=== PATIENT | male | born 1940 | race Caucasian/White ===

== ENCOUNTER 2016-11-10 06:53 | Day surgery (SDC) | payer MEDICARE, BC ==
[~2016-11-10 06:53] MED LIST: Midazolam 1 MG/ML 2 ML SDV ONE; fentaNYL 100 MCG/2 ML SDV ONE
[2016-11-10] MEDS ORDERED: fentaNYL 100 MCG/2 ML SDV IV ONE ×3 (07:33→10:13)
[2016-11-10] MEDS ORDERED: Midazolam 1 MG/ML 2 ML SDV IV ONE ×3 (07:35→10:13)
[2016-11-10] MEDS ORDERED: Sodium Chloride 0.9% 10 ML Syringe FLUSH PRN (08:00)
[2016-11-10] MEDS ORDERED: Dextrose 5%-0.45% NaCl 1,000 ML IV SCH (08:00)
--- NOTE | 2016-11-10 09:00 | OR ---
DATE: 11/10/2016 PROCEDURE: Total colonoscopy. INSTRUMENT USED: CF-H180AL Olympus video colonoscope. PREMEDICATIONS: Fentanyl 100 mcg intravenous, Versed 2 mg intravenous. Nasal O2 cannula. The procedure was done under pulse oximetry, BP recording, and manganese heater. INDICATION: The patient with rectal bleeding and recent CT study suggestive of colonic lesion. Colonoscopic examination is done for detection of any polypoid lesions and removal, endoscopic hemostasis therapy if needed. DESCRIPTION OF PROCEDURE: Initial rectal exam was unremarkable. Rigid anoscopy showed small internal hemorrhoids without bleeding from them. The colonoscope was passed with ease. Numerous scattered diverticula were noted more so in the distal left colon. The visualized colon was found to be tortuous and redundant, the patient having large abdominal hernia. The scope was passed with relative ease up to the ileocecal area, photographs were taken of the normal-appearing cecum, identified by double-bulged ileocecal folds. No bleeding was noted from any of the visualized areas at the commencement of the examination. No stricture. No vascular ectasia. No large isolated ulcerations seen. No evidence of diffuse inflammatory bowel disease in the form of friability, contact bleeding, or ulcerations. Few diminutive benign-appearing polyps were noted in the ascending and transverse colon. Probing the proximal sides of folds and flexures, using adequate distention and clearing up the stool material, withdrawal of the scope was made. Cecum to rectum time over 6 minutes. There was some amount of scattered fecal material noted at the completion of the examination. No bleeding was noted from any of the visualized areas at the completion of examination. IMPRESSION: 1. Internal hemorrhoids. 2. Diverticulosis. 3. Diminutive colonic polyp. The patient tolerated the procedure well. [facility] /[id number]
[2016-11-10 09:46] VITALS: BP 120/56
== END 2016-11-10 10:15 | disposition home or self-care (01) ==
LOC: DL.ENDO 06:53
PROVIDERS: ATTEND Internal Medicine Gastroenterology
PROC: 0DJD8ZZ Inspection of Lower Intestinal Tract, Via Natural or Artificial Opening Endoscopic (ICD-10-PCS; principal; 2016-11-10)
DX: K62.5 Hemorrhage of anus and rectum (principal); K64.8 Other hemorrhoids; K46.9 Unspecified abdominal hernia without obstruction or gangrene
CPT/HCPCS: 45378; J2250; J3010; J7042

== ENCOUNTER 2017-10-25 10:50 | Emergency (ER) | payer MEDICARE, BC ==
--- NOTE | 2017-10-25 11:43 | EDM.PDOC ---
ED HPI GENERAL MEDICAL PROBLEM - General Stated Complaint: ANALISA ABOVE HIS PACEMAKER, ARM SWELLING. Time Seen by Provider: 10/25/17 11:15 Source of Information: Reports: Patient History Limitations: Reports: No Limitations - History of Present Illness INITIAL COMMENTS - FREE TEXT/NARRATIVE: This 77 yo male patient reports to the ED with a 1-2 week history of increased swelling in his left arm. The patient reports he has not been to his primary care provider, but has noticed increased swelling over that time period. The patient reports a past history of chronic kidney disease (stage 4), CAD with pacemaker, history of blood clots (lower extremities), and long-term anticoagulation therapy. Duration: Week(s):, Constant, Getting Worse Location: Reports: Upper Extremity, Left Quality: Reports: Ache, Dull Severity: Moderate Improves with: Reports: None Worsens with: Reports: None Associated Symptoms: Reports: No Other Symptoms - Related Data Allergies Allergy/AdvReac Type Severity Reaction Status Date / Time amoxicillin Allergy Cannot Verified 11/10/16 07:06 Remember Home Meds: Home Meds Acetaminophen [Tylenol] 650 mg PO DAILY 09/13/14 [History] Allopurinol [Allopurinol] 100 mg PO DAILY 09/13/14 [History] Bumetanide [Bumex] 4 mg PO ASDIRECTED 09/13/14 [History] Calcitriol [Calcitriol] 0.25 mg PO DAILY 09/13/14 [History] Carvedilol 50 mg PO BID 09/13/14 [History] Ferrous Sulfate [Iron] 325 mg PO DAILY 09/13/14 [History] Isosorbide Mononitrate 20 mg PO TID 09/13/14 [History] LORazepam [Ativan] 2 mg PO BEDTIME 09/13/14 [History] Multivitamin [Multi Vitamin Daily] 1 tab PO DAILY 09/13/14 [History] Pantoprazole [Protonix] 40 mg PO BEDTIME 09/13/14 [History] Simvastatin [Simvastatin] 10 mg PO BEDTIME 09/13/14 [History] Warfarin [Coumadin] 0.5 tab PO ASDIRECTED 09/13/14 [History] amLODIPine Besylate [Amlodipine Besylate] 2.5 mg PO DAILY 09/13/14 [History] hydrALAZINE [Apresoline] 50 mg PO BID 09/13/14 [History] Acetaminophen/Diphenhydramine [Tylenol Pm Ex-Strength Caplet] 1 tab PO BEDTIME PRN 11/08/16 [History] Ipratropium/Albuterol Sulfate [Iprat-Albut 0.5-3(2.5) MG/3 ML] 1 vial INH Q4H PRN 11/08/16 [History] Acetaminophen [Tylenol Extra Strength] 2 tab PO DAILY 10/25/17 [History] Isosorbide Dinitrate 1 tab PO BID 10/25/17 [History] Past Medical History HEENT History: Reports: None Cardiovascular History: Reports: Blood Clots/VTE/DVT, Heart Failure, High Cholesterol, Hypertension, Other (See Below) Other Cardiovascular History: cardiomyopathy Respiratory History: Reports: PE Gastrointestinal History: Reports: GERD Genitourinary History: Reports: Chronic Renal Insuffiency Musculoskeletal History: Reports: Arthritis, Gout Neurological History: Reports: CVA Psychiatric History: Reports: None Endocrine/Metabolic History: Reports: None Hematologic History: Reports: None Immunologic History: Reports: None Oncologic (Cancer) History: Reports: None Dermatologic History: Reports: None - Infectious Disease History Infectious Disease History: Reports: Chicken Pox, Measles, Mumps - Past Surgical History HEENT Surgical History: Reports: None Cardiovascular Surgical History: Reports: Pacer GI Surgical History: Reports: Appendectomy, Cholecystectomy, EGD Social & Family History - Family History HEENT: Reports: Cataract Cardiac: Reports: Hypertension Respiratory: Reports: None GI: Reports: None : Reports: None OBGYN: Reports: None Musculoskeletal: Reports: Arthritis Neurological: Reports: None Psychiatric: Reports: Mood Swings Endocrine/Metabolic: Reports: None Hematologic: Reports: B12 Deficiency Immunologic: Reports: None Dermatologic: Reports: None Oncologic: Reports: None - Tobacco Use Smoking Status *Q: Never Smoker - Caffeine Use Caffeine Use: Reports: Coffee, Soda Other Caffeine Use: rare - Alcohol Use Days Per Week of Alcohol Use: 0 - Recreational Drug Use Recreational Drug Use: No - Living Situation & Occupation Living situation: Reports: , with Spouse Occupation: Retired ED ROS GENERAL - Review of Systems Review Of Systems: ROS reveals no pertinent complaints other than HPI. ED EXAM, SKIN/RASH Exam: See Below Exam Limited By: No Limitations General Appearance: Alert, WD/WN, Moderate Distress Eye Exam: Bilateral Eye: EOMI, Normal Inspection, PERRL Ears: Normal External Exam, Normal Canal, Hearing Grossly Normal, Normal TMs Nose: Normal Inspection, Normal Mucosa, No Blood Throat/Mouth: Normal Inspection, Normal Lips, Normal Teeth, Normal Gums, Normal Oropharynx, Normal Voice, No Airway Compromise Head: Atraumatic, Normocephalic Neck: Normal Inspection, Supple, Non-Tender, Full Range of Motion Respiratory/Chest: No Respiratory Distress, Lungs Clear, Normal Breath Sounds, No Accessory Muscle Use, Chest Non-Tender Cardiovascular: Normal Peripheral Pulses, Regular Rate, Rhythm, No Edema, No Gallop, No JVD, No Murmur, No Rub GI/Abdominal: Normal Bowel Sounds, Soft, Non-Tender, No Organomegaly, No Distention, No Abnormal Bruit, No Mass (Male) Exam: Deferred Rectal (Males) Exam: Deferred Back Exam: Normal Inspection, Full Range of Motion, NT Extremities: Redness (redness and swelling of the left elbow.) Neurological: Alert, Oriented, CN II-XII Intact, Normal Cognition, Normal Gait, Normal Reflexes, No Motor/Sensory Deficits Psychiatric: Normal Affect, Normal Mood Skin: Erythema Location, Skin: Upper Extremity, Left Characteristics: Erythematous Associated features: Warmth, Swelling. No: Tenderness Lymphatic: No Adenopathy Course - Orders/Labs/Meds Orders: Active Orders 24 hr Category Date Time Status CULTURE BLOOD [BC] Stat Lab 10/25/17 11:47 Received CULTURE BLOOD [BC] Stat Lab 10/25/17 11:50 Received Blood Culture x2 Reflex Set [OM.PC] Stat Oth 10/25/17 11:36 Ordered Labs: Laboratory Tests 10/25/17 10/25/17 10/25/17 Range/Units 11:47 11:47 11:47 WBC 7.7 (5.0-10.0) 10^3/uL RBC 3.24 L (4.6-6.2) 10^6/uL Hgb 9.9 L D (14.0-18.0) g/dL Hct 33.2 L (40.0-54.0) % MCV 102.5 H D (80-100) fL MCH 30.6 (27.0-34.0) pg MCHC 29.8 L (33.0-35.0) g/dL Plt Count 186 (150-450) 10^3/uL Neut % (Auto) 51.3 (42.2-75.2) % Lymph % (Auto) 31.0 (20.5-50.1) % [place] % (Auto) 13.6 H (2-8) % Eos % (Auto) 3.3 H (1.0-3.0) % Baso % (Auto) 0.8 (0.0-1.0) % PT 23.0 H D (9.0-12.0) SEC INR 2.3 H (0.9-1.2) Sodium 139 (135-145) mmol/L Potassium 4.2 (3.6-5.0) mmol/L Chloride 106 (101-111) mmol/L Carbon Dioxide 26.0 (21.0-31.0) mmol/L Anion Gap 11.2 BUN 65 H (7-18) mg/dL Creatinine 3.6 H D (0.6-1.3) mg/dL Est Cr Clr Drug Dosing TNP Estimated GFR (MDRD) 16 BUN/Creatinine Ratio 18.05 Glucose 101 (74-105) mg/dL Lactic Acid (0.5-2.2) mmol/L Calcium 9.2 (8.4-10.2) mg/dl Total Bilirubin 0.8 (0.2-1.0) mg/dL AST 12 (10-42) IU/L ALT 7 L (10-60) IU/L Alkaline Phosphatase 38 L (42-121) IU/L Total Protein 5.6 L (6.7-8.2) g/dl Albumin 3.0 L (3.2-5.5) g/dl Globulin 2.6 Albumin/Globulin Ratio 1.15 /18 Range/Units 11:47 WBC (5.0-10.0) 10^3/uL RBC (4.6-6.2) 10^6/uL Hgb (14.0-18.0) g/dL Hct (40.0-54.0) % MCV (80-100) fL MCH (27.0-34.0) pg MCHC (33.0-35.0) g/dL Plt Count (150-450) 10^3/uL Neut % (Auto) (42.2-75.2) % Lymph % (Auto) (20.5-50.1) % [place] % (Auto) (2-8) % Eos % (Auto) (1.0-3.0) % Baso % (Auto) (0.0-1.0) % PT (9.0-12.0) SEC INR (0.9-1.2) Sodium (135-145) mmol/L Potassium (3.6-5.0) mmol/L Chloride (101-111) mmol/L Carbon Dioxide (21.0-31.0) mmol/L Anion Gap BUN (7-18) mg/dL Creatinine (0.6-1.3) mg/dL Est Cr Clr Drug Dosing Estimated GFR (MDRD) BUN/Creatinine Ratio Glucose (74-105) mg/dL Lactic Acid 0.9 (0.5-2.2) mmol/L Calcium (8.4-10.2) mg/dl Total Bilirubin (0.2-1.0) mg/dL AST (10-42) IU/L ALT (10-60) IU/L Alkaline Phosphatase (42-121) IU/L Total Protein (6.7-8.2) g/dl Albumin (3.2-5.5) g/dl Globulin Albumin/Globulin Ratio Departure - Departure Time of Disposition: 12:43 Disposition: Home, Self-Care 01 Condition: Fair Clinical Impression: Cellulitis of left arm CKD (chronic kidney disease) Qualifiers: Chronic kidney disease stage: stage 4 (severe) Qualified Code(s): N18.4 - Chronic kidney disease, stage 4 (severe) - Discharge Information Instructions: Cellulitis, Adult, [id number] Care Plan Goals: The patient and his were advised of the examination and lab results during the visit. The patient was given a script for Keflex (500 mg) to take 1 by mouth 3 times per day for 10 days. The patient was encouraged to follow-up with his primary care facility by the end of the week for continued evaluation and further management. If the patient has any additional symptoms or concerns, the patient should visit his primary care facility or return to the emergency department. - My Orders Last 24 Hours: My Active Orders 10/25/17 11:36 Blood Culture x2 Reflex Set [OM.PC] Stat 10/25/17 11:47 CULTURE BLOOD [BC] Stat 10/25/17 11:50 CULTURE BLOOD [BC] Stat - Assessment/Plan Last 24 Hours: My Active Orders 10/25/17 11:36 Blood Culture x2 Reflex Set [OM.PC] Stat 10/25/17 11:47 CULTURE BLOOD [BC] Stat 10/25/17 11:50 CULTURE BLOOD [BC] Stat
[2017-10-25 12:16] LABS: CHLORIDE,CL 106 mmol/L (101-111); SODIUM,NA 139 mmol/L (135-145)
== END 2017-10-25 12:57 | disposition home or self-care (01) ==
LOC: DL.ED 10:50
DX: L03.114 Cellulitis of left upper limb (principal); I13.0 Hypertensive heart and chronic kidney disease with heart failure and stage 1 through stage 4 chronic kidney disease, or unspecified chronic kidney disease; I50.9 Heart failure, unspecified; N18.4 Chronic kidney disease, stage 4 (severe); E78.00 Pure hypercholesterolemia, unspecified; Z88.1 Allergy status to other antibiotic agents; Z79.01 Long term (current) use of anticoagulants; Z79.899 Other long term (current) drug therapy; Z86.718 Personal history of other venous thrombosis and embolism
CPT/HCPCS: 36415; 80053; 83605; 85025; 85610; 87040; 99283

== ENCOUNTER 2017-10-28 11:48 | Inpatient (IN) | payer MEDICARE, BC ==
[2017-10-28] MEDS ORDERED: Acetaminophen 325 MG Tab PO PRN (13:00)
[2017-10-28] MEDS ORDERED: Heparin Sodium 5,000 Units/ML Vial IVPUSH SCH (13:00)
[2017-10-28] MEDS ORDERED: traMADol 50 MG Tab PO PRN (13:06)
[2017-10-28] MEDS ORDERED: Sodium Chloride 0.9% 10 ML Syringe FLUSH PRN (13:09)
[2017-10-28] MEDS ORDERED: Zolpidem 5 MG Tab PO PRN (13:09)
[2017-10-28] MEDS ORDERED: Bumetanide 1 MG Tab PO SCH (14:00)
[2017-10-28] MEDS: Heparin Sodium/D5W 25,000 UNITS/500 ML BAG IV SCH (14:17)
[2017-10-28] MEDS ORDERED: Non-Formulary Medication 1 Each (Bumetanide [Bumex] 2 MG) PO SCH (14:45)
[2017-10-28] MEDS ORDERED: Warfarin 2.5 MG Tab PO ONE (15:00)
--- NOTE | 2017-10-28 15:14 | PCM.HP ---
H&P History of Present Illness - General Date of Service: 10/28/17 Admit Problem/Dx: Admission Diagnosis/Problem Admission Diagnosis/Problem DVT of right axillary vein, acute Source of Information: Patient, Family - History of Present Illness Initial Comments - Free Text/Narative: The patient is a 77-year-old gentleman with a history of chronic kidney disease stage V, history of pulmonary embolism and DVT, dyslipidemia and hypertension. The patient presented with left arm swelling and redness. It appears it started around 22 October. Later had a clinic visit and was started on Keflex for a presumed cellulitis. The swelling and redness did not improve and was seen in the clinic on 28 October. The patient had no associated fever nor chills. He has been on Coumadin but lately the INR was subtherapeutic. He denies any new shortness of breath. - Related Data Allergies/Adverse Reactions: Allergies Allergy/AdvReac Type Severity Reaction Status Date / Time amoxicillin Allergy Cannot Verified 11/10/16 07:06 Remember Home Medications: Home Meds Acetaminophen [Tylenol] 650 mg PO DAILY 09/13/14 [History] Allopurinol [Allopurinol] 100 mg PO DAILY 09/13/14 [History] Bumetanide [Bumex] 1 mg PO .NOON 09/13/14 [History] Calcitriol [Calcitriol] 2 tab PO DAILY 09/13/14 [History] Carvedilol 50 mg PO BID 09/13/14 [History] Ferrous Sulfate [Iron] 325 mg PO DAILY 09/13/14 [History] Isosorbide Mononitrate 20 mg PO TID 09/13/14 [History] LORazepam [Ativan] 2 mg PO BEDTIME 09/13/14 [History] Multivitamin [Multi Vitamin Daily] 1 tab PO DAILY 09/13/14 [History] Pantoprazole [Protonix] 40 mg PO BEDTIME 09/13/14 [History] Simvastatin [Simvastatin] 10 mg PO BEDTIME 09/13/14 [History] Warfarin [Coumadin] 1.25 tab PO ASDIRECTED 09/13/14 [History] amLODIPine Besylate [Amlodipine Besylate] 2.5 mg PO DAILY 09/13/14 [History] hydrALAZINE [Apresoline] 50 mg PO BID 09/13/14 [History] Acetaminophen/Diphenhydramine [Tylenol Pm Ex-Strength Caplet] 1 tab PO BEDTIME PRN 11/08/16 [History] Acetaminophen [Tylenol Extra Strength] 2 tab PO DAILY 10/25/17 [History] Bumetanide [Bumex] 2 mg PO .0800 10/28/17 [History] Cephalexin 500 mg PO TID 10/28/17 [History] Past Medical History HEENT History: Reports: None Cardiovascular History: Reports: Blood Clots/VTE/DVT, Heart Failure, High Cholesterol, Hypertension, Other (See Below) Other Cardiovascular History: cardiomyopathy Respiratory History: Reports: PE, Pneumonia, Recurrent Gastrointestinal History: Reports: GERD Genitourinary History: Reports: Chronic Renal Insuffiency Other Genitourinary History: CKD stage 5 with GFR less than 15 ml/min, ARF, Musculoskeletal History: Reports: Arthritis, Gout Neurological History: Reports: CVA Other Neuro History: cerebrovascular disease with pontine stroke in 1998 Psychiatric History: Reports: None Endocrine/Metabolic History: Reports: None Hematologic History: Reports: None, Anticoagulation Therapy Other Hematologic History: recurrent DVT and remote history or PE Immunologic History: Reports: None Oncologic (Cancer) History: Reports: None Dermatologic History: Reports: None - Infectious Disease History Infectious Disease History: Reports: MRSA - Past Surgical History HEENT Surgical History: Reports: None Cardiovascular Surgical History: Reports: Pacer GI Surgical History: Reports: Appendectomy, Cholecystectomy, EGD Other GI Surgeries/Procedures: 11/30/[address] Art, esophageal stricture benign Social & Family History - Family History Family Medical History: Noncontributory HEENT: Reports: Cataract Cardiac: Reports: Hypertension Respiratory: Reports: None GI: Reports: None : Reports: None OBGYN: Reports: None Musculoskeletal: Reports: Arthritis Neurological: Reports: None Psychiatric: Reports: Mood Swings Endocrine/Metabolic: Reports: None Hematologic: Reports: B12 Deficiency Immunologic: Reports: None Dermatologic: Reports: None Oncologic: Reports: None - Tobacco Use Smoking Status *Q: Never Smoker Second Hand Smoke Exposure: No - Caffeine Use Caffeine Use: Reports: Coffee Other Caffeine Use: rare - Alcohol Use Days Per Week of Alcohol Use: 0 - Recreational Drug Use Recreational Drug Use: No - Living Situation & Occupation Living situation: Reports: , with Spouse Occupation: Retired H&P Review of Systems - Review of Systems: Review Of Systems: See Below General: Denies: Fever, Chills Pulmonary: Denies: Shortness of Breath Cardiovascular: Denies: Chest Pain Gastrointestinal: Denies: Abdominal Pain Psychiatric: Denies: Confusion Exam - Exam Exam: See Below - Vital Signs Vital Signs: Last Vital Signs Temp 37.1 C 10/28/17 14:13 Pulse 50 L 10/28/17 14:13 Resp 20 10/28/17 14:13 BP 128/67 10/28/17 14:13 Pulse Ox 95 10/28/17 14:13 Weight: 97.795 kg - Exam General: Alert, Oriented Neck: Supple Lungs: Clear to Auscultation, Normal Respiratory Effort GI/Abdominal Exam: Normal Bowel Sounds, Soft, Non-Tender Extremities: Pedal Edema (1-2+ left upper extremity edema) Skin: Other (Mild erythema of the left upper extremity) Neuro Extensive - Mental Status: Alert, Oriented x3, Normal Mood/Affect Psychiatric: Alert, Normal Affect, Normal Mood - Patient Data Lab Results Last 24 hrs: Laboratory Results - last 24 hr 10/28/17 Range/Units 13:58 PT 27.1 H (9.0-12.0) SEC INR 2.7 H (0.9-1.2) Imaging Impressions Last 24 hrs: DATE OF STUDY: October 28, 2017 DUPLEX ULTRASOUND EXAM, DEEP VEINS OF THE LEFT UPPER EXTREMITY: HISTORY: A 77-year-old, 220-pound male with swelling and redness (1 week) who has been on antibiotics. Significant past history of DVT, lower extremities with PE in 1984. INTERPRETATION: Abnormal. Sonographic evidence of deep vein thrombosis, proximally left upper extremity, i.e. intraluminal thrombus, non-compressibility and no augmentation of venous flow in the left brachial, axillary, and ipsilateral left subclavian vein. Normal-appearing deep veins of the left forearm and in the left jugular vein at this time. CONCLUSION: Deep venous thrombosis, left upper extremity. *Q Meaningful Use (ADM) - VTE *Q VTE Criteria *Q: - Stroke *Q Stroke Criteria *Q: - AMI *Q AMI Criteria *Q: - Problem List (1) Left upper extremity deep vein thrombosis SNOMED Code(s): 069222761 ICD Code: I82.622 - ACUTE EMBOLISM AND THROMBOSIS OF DEEP VEINS OF L UP EXTREM Status: Acute Current Visit: Yes (2) CKD (chronic kidney disease) SNOMED Code(s): 707122274 ICD Code: N18.9 - CHRONIC KIDNEY DISEASE, UNSPECIFIED Status: Acute Current Visit: No Qualifiers: Chronic kidney disease stage: stage 4 (severe) Qualified Code(s): N18.4 - Chronic kidney disease, stage 4 (severe) Problem List Initiated/Reviewed/Updated: Yes Orders Last 24hrs: Active Orders 24 hr Category Date Time Status Patient Status [ADT] Routine ADT 10/28/17 13:09 Active Communication Order [RC] DAILY Care 10/28/17 12:59 Active Oxygen Therapy [RC] PRN Care 10/28/17 13:09 Active Peripheral IV Care [RC] . DIRECTED Care 10/28/17 13:24 Active Up With Assistance [RC] ASDIRECTED Care 10/28/17 13:09 Active VTE/DVT Education [RC] PER UNIT ROUTINE Care 10/28/17 13:09 Active Vital Signs [RC] Q4H Care 10/28/17 13:09 Active Regular Diet [DIET] Diet 10/28/17 Dinner Active BASIC METABOLIC PANEL,BMP [CHEM] AM Lab 10/29/17 05:15 Ordered CBC WITH AUTO DIFF [HEME] AM Lab 10/29/17 05:15 Ordered INR,PT,PROTHROMBIN TIME [COAG] AM Lab 10/29/17 05:11 Ordered INR,PT,PROTHROMBIN TIME [COAG] AM Lab 10/30/17 05:11 Ordered INR,PT,PROTHROMBIN TIME [COAG] AM Lab 10/31/17 05:11 Ordered INR,PT,PROTHROMBIN TIME [COAG] AM Lab 11/01/17 05:11 Ordered INR,PT,PROTHROMBIN TIME [COAG] AM Lab 11/02/17 05:11 Ordered INR,PT,PROTHROMBIN TIME [COAG] AM Lab 11/03/17 05:11 Ordered INR,PT,PROTHROMBIN TIME [COAG] Routine Lab 10/28/17 14:38 Ordered PTT,PARTIAL THROMBOPLSTIN TIME [COAG] Q6H Lab 10/28/17 20:00 Ordered PTT,PARTIAL THROMBOPLSTIN TIME [COAG] Q6H Lab 10/29/17 02:00 Ordered PTT,PARTIAL THROMBOPLSTIN TIME [COAG] Q6H Lab 10/29/17 08:00 Ordered PTT,PARTIAL THROMBOPLSTIN TIME [COAG] Q Lab 10/29/17 14:00 Ordered PTT,PARTIAL THROMBOPLSTIN TIME [COAG] [facility] Lab 10/29/17 20:00 Ordered PTT,PARTIAL THROMBOPLSTIN TIME [COAG] [facility] Lab 10/30/17 02:00 Ordered PTT,PARTIAL THROMBOPLSTIN TIME [COAG] [facility] Lab 10/30/17 08:00 Ordered PTT,PARTIAL THROMBOPLSTIN TIME [COAG] [facility] Lab 10/30/17 14:00 Ordered PTT,PARTIAL THROMBOPLSTIN TIME [COAG] [facility] Lab 10/30/17 20:00 Ordered PTT,PARTIAL THROMBOPLSTIN TIME [COAG] [facility] Lab 10/31/17 02:00 Ordered PTT,PARTIAL THROMBOPLSTIN TIME [COAG] [facility] Lab 10/31/17 08:00 Ordered PTT,PARTIAL THROMBOPLSTIN TIME [COAG] [facility] Lab 10/31/17 14:00 Ordered PTT,PARTIAL THROMBOPLSTIN TIME [COAG] [facility] Lab 10/31/17 20:00 Ordered PTT,PARTIAL THROMBOPLSTIN TIME [COAG] [facility] Lab 11/01/17 02:00 Ordered PTT,PARTIAL THROMBOPLSTIN TIME [COAG] [facility] Lab 11/01/17 08:00 Ordered PTT,PARTIAL THROMBOPLSTIN TIME [COAG] [facility] Lab 11/01/17 14:00 Ordered PTT,PARTIAL THROMBOPLSTIN TIME [COAG] [facility] Lab 11/01/17 20:00 Ordered PTT,PARTIAL THROMBOPLSTIN TIME [COAG] [facility] Lab 11/02/17 02:00 Ordered PTT,PARTIAL THROMBOPLSTIN TIME [COAG] [facility] Lab 11/02/17 08:00 Ordered PTT,PARTIAL THROMBOPLSTIN TIME [COAG] [facility] Lab 11/02/17 14:00 Ordered PTT,PARTIAL THROMBOPLSTIN TIME [COAG] [facility] Lab 11/02/17 20:00 Ordered PTT,PARTIAL THROMBOPLSTIN TIME [COAG] Q Lab 11/03/17 02:00 Ordered PTT,PARTIAL THROMBOPLSTIN TIME [COAG] Q Lab 11/03/17 08:00 Ordered PTT,PARTIAL THROMBOPLSTIN TIME [COAG] Q6H Lab 11/03/17 14:00 Ordered PTT,PARTIAL THROMBOPLSTIN TIME [COAG] Q6H Lab 11/03/17 20:00 Ordered Acetaminophen [Tylenol] Med 10/28/17 13:00 Active 650 mg PO Q6H PRN Allopurinol [Zyloprim] Med 10/29/17 09:00 Active 100 mg PO DAILY Bumetanide [Bumex] Med 10/28/17 14:00 Active 1 mg PO DAILY@1400 Bumetanide [Bumex] Med 10/28/17 14:45 Ordered 2 mg PO .0800 Bumetanide [Bumex] Med 10/29/17 08:00 Active 2 mg PO DAILY@0800 Calcitriol [Rocaltrol] Med 10/29/17 09:00 Active 0.25 mcg PO DAILY@1200 Carvedilol [Coreg] Med 10/28/17 18:00 Active 50 mg PO BIDMEALS Cephalexin [Keflex] Med 10/28/17 21:00 Active 500 mg PO TID Ferrous Sulfate Med 10/29/17 08:00 Active 325 mg PO DAILY@0800 Heparin Sodium/D5W [Heparin 25,000 Units in D5W 500 ML] Med 10/28/17 14:00 Active 25,000 units in 500 ml IV TITRATE Isosorbide Mononitrate [Imdur] Med 10/28/17 15:00 Active 30 mg PO 0800,1500 LORazepam [Ativan] Med 10/28/17 21:00 Active 2 mg PO BEDTIME Multivitamins,Therapeutic [Thera] Med 10/29/17 09:00 Active 1 each PO DAILY Pantoprazole [ProTONIX] Med 10/28/17 21:00 Active 40 mg PO BEDTIME Simvastatin [Zocor] Med 10/28/17 21:00 Active 10 mg PO BEDTIME Sodium Chloride 0.9% [Saline Flush] Med 10/28/17 13:09 Active 10 ml FLUSH ASDIRECTED PRN Warfarin Pharmacy to Dose [Pharmacy to Dose - Warfarin] Med 10/28/17 13:00 Pending 1 dose .XX ASDIRECTED Zolpidem [Ambien] Med 10/28/17 13:09 Active 5 mg PO BEDTIME PRN amLODIPine [Norvasc] Med 10/29/17 09:00 Active 2.5 mg PO DAILY hydrALAZINE [Apresoline] Med 10/28/17 21:00 Active 50 mg PO BID traMADol [Ultram] Med 10/28/17 13:06 Active 50 mg PO Q6H PRN Peripheral IV Insertion Adult [OM.PC] Routine Oth 10/28/17 13:09 Ordered Saline Lock Insert [OM.PC] Routine Oth 10/28/17 13:09 Ordered Resuscitation Status Routine Resus Stat 10/28/17 13:09 Ordered Medication Orders Acetaminophen (Tylenol) 650 mg PO Q6H PRN PRN Reason: pain, fever Allopurinol (Zyloprim) 100 mg PO DAILY [facility] Amlodipine Besylate (Norvasc) 2.5 mg PO DAILY [facility] Bumetanide (Bumex) 2 mg PO DAILY@0800 [facility] Bumetanide (Bumex) 1 mg PO DAILY@1400 [facility] Calcitriol (Rocaltrol) 0.25 mcg PO DAILY@1200 [facility] Carvedilol (Coreg) 50 mg PO BIDMEALS [facility] Cephalexin (Keflex) 500 mg PO TID [facility] Ferrous Sulfate (Ferrous Sulfate) 325 mg PO DAILY@0800 [facility] Hydralazine HCl (Apresoline) 50 mg PO BID [facility] Heparin Sodium/Dextrose (Heparin 25,000 Units In D5w 500 Ml) 25,000 units in 500 mls @ 23.471 mls/hr IV TITRATE [facility]; 12 UNITS/KG/HR PRN Reason: Protocol Last Admin: 10/28/17 14:17 Dose: 12 units/kg/hr, 23.471 mls/hr Isosorbide Mononitrate (Imdur) 30 mg PO 0800,1500 [facility] Lorazepam (Ativan) 2 mg PO BEDTIME [facility] Multivitamins (Thera) 1 each PO DAILY [facility] Non-Formulary Medication (Bumetanide [Bumex]) 2 mg PO .0800 [facility] Pantoprazole Sodium (Protonix) 40 mg PO BEDTIME [facility] Simvastatin (Zocor) 10 mg PO BEDTIME [facility] Sodium Chloride (Saline Flush) 10 ml FLUSH ASDIRECTED PRN PRN Reason: Keep Vein Open Tramadol HCl (Ultram) 50 mg PO Q6H PRN PRN Reason: severe pain Warfarin Sodium (Pharmacy To Dose - Warfarin) 1 dose .XX ASDIRECTED [facility] Zolpidem Tartrate (Ambien) 5 mg PO BEDTIME PRN PRN Reason: Sleep Assessment/Plan Comment:: The patient is a 77-year-old gentleman with a history of chronic kidney disease stage V, history of pulmonary embolism and DVT, dyslipidemia and hypertension. The patient presented with left arm swelling and redness. It appears it started around 22 October. Later had a clinic visit and was started on Keflex for a presumed cellulitis. The swelling and redness did not improve and was seen in the clinic on 28 October. The patient had no associated fever nor chills. He has been on Coumadin but lately the INR was subtherapeutic. He denies any new shortness of breath. #1 left upper extremity deep venous thrombosis involving the subclavian, axillary, brachial veins The patient has been on Coumadin for a history of DVT but INR was subtherapeutic lately. We'll start him on heparin weight-based nomogram. Monitor PTT and adjust drip rate. We'll also increase Coumadin and target INR to be between 2.5 and 3.2. #2 the redness is likely secondary to venous dialysis but there is possible bacterial superinfection. For now I will continue Keflex #3 chronic kidney disease stage IV to V Continue Bumex #4 hypertension Treat with Imdur, Coreg, Bumex, Norvasc, hydralazine #5 coronary artery disease Treat with Imdur, Coreg
[2017-10-28] MEDS: Isosorbide Mononitrate 30 MG Tab.ER PO SCH (15:53)
[2017-10-28] MEDS: Bumetanide 1 MG Tab PO SCH (15:54)
[2017-10-28] MEDS: Carvedilol 25 MG Tab PO SCH (17:51)
[2017-10-28] MEDS: hydrALAZINE 25 MG Tab PO SCH (20:26)
[2017-10-28] MEDS: LORazepam 1 MG Tab PO SCH (20:27)
[2017-10-28] MEDS: Cephalexin 500 MG Cap PO SCH (20:27)
[2017-10-28] MEDS: Pantoprazole 40 MG Tab.CR PO SCH (20:27)
[2017-10-28] MEDS: Simvastatin 10 MG Tab PO SCH (20:28)
[2017-10-28] MEDS ORDERED: Heparin Sodium 5,000 Units/ML Vial IVPUSH ONE (21:30)
[2017-10-29] MEDS: amLODIPine 5 MG Tab PO SCH (08:19)
[2017-10-29] MEDS: Calcitriol 0.25 MCG Cap PO SCH ×2 (08:20→12:04)
[2017-10-29] MEDS: hydrALAZINE 25 MG Tab PO SCH ×2 (08:20→20:36)
[2017-10-29] MEDS: Cephalexin 500 MG Cap PO SCH ×3 (08:20→20:37)
[2017-10-29] MEDS: Allopurinol 100 MG Tab PO SCH (08:20)
[2017-10-29] MEDS: Ferrous Sulfate 325 MG Tab PO SCH (08:20)
[2017-10-29] MEDS: Bumetanide 1 MG Tab PO SCH ×2 (08:21→12:04)
[2017-10-29] MEDS: Carvedilol 25 MG Tab PO SCH ×2 (08:21→17:12)
[2017-10-29] MEDS: Multivitamins,Therapeutic Tab PO SCH (08:21)
[2017-10-29] MEDS: Isosorbide Mononitrate 30 MG Tab.ER PO SCH ×2 (08:24→14:13)
[2017-10-29] MEDS: Heparin Sodium/D5W 25,000 UNITS/500 ML BAG IV SCH (10:04)
--- NOTE | 2017-10-29 10:25 | PCM.PN ---
- General Info Date of Service: 10/29/17 Admission Dx/Problem (Free Text): Admission Diagnosis/Problem Admission Diagnosis/Problem DVT of left sublavian, axillary vein, acute Subjective Update: The left upper extremity swelling is somewhat better in the hand but still significant in the mid and upper arms No associated shortness of breath. No chest pain. No sign of bleeding. Functional Status: Reports: Tolerating Diet - Review of Systems General: Denies: Fever Pulmonary: Denies: Shortness of Breath Cardiovascular: Denies: Chest Pain Gastrointestinal: Denies: Abdominal Pain Psychiatric: Denies: Confusion - Patient Data Vitals - Most Recent: Last Vital Signs Temp 37.1 C 10/29/17 07:34 Pulse 78 10/29/17 08:21 Resp 24 H 10/29/17 07:34 BP 121/65 10/29/17 08:24 Pulse Ox 93 L 10/29/17 07:34 Weight - Most Recent: 97.795 kg I&O - Last 24 Hours: Intake & Output 10/28/17 10/29/17 10/29/17 22:59 06:59 14:59 Intake Total 495 Balance 495 Lab Results Last 24 Hours: Laboratory Results - last 24 hr 10/28/17 10/28/17 10/28/17 Range/Units 13:58 20:15 20:15 WBC (5.0-10.0) 10^3/uL RBC (4.6-6.2) 10^6/uL Hgb (14.0-18.0) g/dL Hct (40.0-54.0) % MCV (80-100) fL MCH (27.0-34.0) pg MCHC (33.0-35.0) g/dL Plt Count (150-450) 10^3/uL Neut % (Auto) (42.2-75.2) % Lymph % (Auto) (20.5-50.1) % [place] % (Auto) (2-8) % Eos % (Auto) (1.0-3.0) % Baso % (Auto) (0.0-1.0) % PT 27.1 H 29.2 H (9.0-12.0) SEC INR 2.7 H 2.9 H (0.9-1.2) APTT 45.7 H (22.0-34.0) SEC Sodium (135-145) mmol/L Potassium (3.6-5.0) mmol/L Chloride (101-111) mmol/L Carbon Dioxide (21.0-31.0) mmol/L Anion Gap BUN (7-18) mg/dL Creatinine (0.6-1.3) mg/dL Est Cr Clr Drug Dosing mL/min Estimated GFR (MDRD) Glucose (74-105) mg/dL Calcium (8.4-10.2) mg/dl 10/29/17 10/29/17 10/29/17 Range/Units 02:00 08:10 08:10 WBC 7.7 (5.0-10.0) 10^3/uL RBC 3.01 L (4.6-6.2) 10^6/uL Hgb 9.4 L (14.0-18.0) g/dL Hct 30.4 L (40.0-54.0) % MCV 101.0 H (80-100) fL MCH 31.2 (27.0-34.0) pg MCHC 30.9 L (33.0-35.0) g/dL Plt Count 213 (150-450) 10^3/uL Neut % (Auto) 46.0 (42.2-75.2) % Lymph % (Auto) 35.8 (20.5-50.1) % [place] % (Auto) 13.6 H (2-8) % Eos % (Auto) 3.8 H (1.0-3.0) % Baso % (Auto) 0.8 (0.0-1.0) % PT 27.7 H (9.0-12.0) SEC INR 2.7 H (0.9-1.2) APTT 66.4 H (22.0-34.0) SEC Sodium (135-145) mmol/L Potassium (3.6-5.0) mmol/L Chloride (101-111) mmol/L Carbon Dioxide (21.0-31.0) mmol/L Anion Gap BUN (7-18) mg/dL Creatinine (0.6-1.3) mg/dL Est Cr Clr Drug Dosing mL/min Estimated GFR (MDRD) Glucose (74-105) mg/dL Calcium (8.4-10.2) mg/dl 10/29/17 10/29/17 Range/Units 08:10 08:10 WBC (5.0-10.0) 10^3/uL RBC (4.6-6.2) 10^6/uL Hgb (14.0-18.0) g/dL Hct (40.0-54.0) % MCV (80-100) fL MCH (27.0-34.0) pg MCHC (33.0-35.0) g/dL Plt Count (150-450) 10^3/uL Neut % (Auto) (42.2-75.2) % Lymph % (Auto) (20.5-50.1) % [place] % (Auto) (2-8) % Eos % (Auto) (1.0-3.0) % Baso % (Auto) (0.0-1.0) % PT (9.0-12.0) SEC INR (0.9-1.2) APTT 57.8 H (22.0-34.0) SEC Sodium 139 (135-145) mmol/L Potassium 4.1 (3.6-5.0) mmol/L Chloride 106 (101-111) mmol/L Carbon Dioxide 25.0 (21.0-31.0) mmol/L Anion Gap 12.1 BUN 65 H (7-18) mg/dL Creatinine 3.6 H (0.6-1.3) mg/dL Est Cr Clr Drug Dosing 16.64 mL/min Estimated GFR (MDRD) 16 Glucose 89 (74-105) mg/dL Calcium 9.2 (8.4-10.2) mg/dl Med Orders - Current: Current Medications Acetaminophen (Tylenol) 650 mg PO Q6H PRN PRN Reason: pain, fever Allopurinol (Zyloprim) 100 mg PO DAILY [facility] Last Admin: 10/29/17 08:20 Dose: 100 mg Amlodipine Besylate (Norvasc) 2.5 mg PO DAILY [facility] Last Admin: 10/29/17 08:19 Dose: 2.5 mg Bumetanide (Bumex) 2 mg PO DAILY@0800 [facility] Last Admin: 10/29/17 08:21 Dose: 2 mg Bumetanide (Bumex) 1 mg PO DAILY@1200 [facility] Last Admin: 10/28/17 15:54 Dose: 1 mg Calcitriol (Rocaltrol) 0.25 mcg PO DAILY@1200 [facility] Last Admin: 10/29/17 08:20 Dose: 0.25 mcg Carvedilol (Coreg) 50 mg PO BIDMEALS [facility] Last Admin: 10/29/17 08:21 Dose: 50 mg Cephalexin (Keflex) 500 mg PO TID [facility] Last Admin: 10/29/17 08:20 Dose: 500 mg Ferrous Sulfate (Ferrous Sulfate) 325 mg PO DAILY@0800 [facility] Last Admin: 10/29/17 08:20 Dose: 325 mg Hydralazine HCl (Apresoline) 50 mg PO BID [facility] Last Admin: 10/29/17 08:20 Dose: 50 mg Heparin Sodium/Dextrose (Heparin 25,000 Units In D5w 500 Ml) 25,000 units in 500 mls @ 23.471 mls/hr IV TITRATE [facility]; 12 UNITS/KG/HR PRN Reason: Protocol Last Admin: 10/29/17 10:04 Dose: 14 units/kg/hr, 27.383 mls/hr Isosorbide Mononitrate (Imdur) 30 mg PO 0800,1500 [facility] Last Admin: 10/29/17 08:24 Dose: 30 mg Lorazepam (Ativan) 2 mg PO BEDTIME [facility] Last Admin: 10/28/17 20:27 Dose: 2 mg Multivitamins (Thera) 1 each PO DAILY [facility] Last Admin: 10/29/17 08:21 Dose: 1 each Pantoprazole Sodium (Protonix) 40 mg PO BEDTIME [facility] Last Admin: 10/28/17 20:27 Dose: 40 mg Simvastatin (Zocor) 10 mg PO BEDTIME [facility] Last Admin: 10/28/17 20:28 Dose: 10 mg Sodium Chloride (Saline Flush) 10 ml FLUSH ASDIRECTED PRN PRN Reason: Keep Vein Open Tramadol HCl (Ultram) 50 mg PO Q6H PRN PRN Reason: severe pain Warfarin Sodium (Pharmacy To Dose - Warfarin) 1 dose .XX ASDIRECTED [facility] Warfarin Sodium (Coumadin) 1 mg PO ONETIME ONE Stop: 10/29/17 14:01 Zolpidem Tartrate (Ambien) 5 mg PO BEDTIME PRN PRN Reason: Sleep Discontinued Medications Bumetanide (Bumex) 1 mg PO DAILY@1400 [facility] Last Admin: 10/28/17 15:50 Dose: Not Given Heparin Sodium (Porcine) (Heparin Sodium) 1,000 units IVPUSH ONETIME ONE Stop: 10/28/17 21:31 Last Admin: 10/28/17 21:28 Dose: 1,000 units Warfarin Sodium (Coumadin) 1.25 mg PO ONETIME ONE Stop: 10/28/17 15:01 Last Admin: 10/28/17 15:54 Dose: 1.25 mg - Exam General: Alert, Oriented Neck: Supple Lungs: Clear to Auscultation, Normal Respiratory Effort Cardiovascular: Regular Rate, Regular Rhythm, Murmurs (Systolic) GI/Abdominal Exam: Normal Bowel Sounds, Soft, Non-Tender Extremities: No Pedal Edema, Other (Left upper extremity edema. Redness) Skin: Warm, Dry - Problem List & Annotations (1) Left upper extremity deep vein thrombosis SNOMED Code(s): 377179531 Code(s): I82.622 - ACUTE EMBOLISM AND THROMBOSIS OF DEEP VEINS OF L UP EXTREM Status: Acute Current Visit: Yes (2) CKD (chronic kidney disease) SNOMED Code(s): 721016912 Code(s): N18.9 - CHRONIC KIDNEY DISEASE, UNSPECIFIED Status: Acute Current Visit: No Qualifiers: Chronic kidney disease stage: stage 4 (severe) Qualified Code(s): N18.4 - Chronic kidney disease, stage 4 (severe) - Problem List Review Problem List Initiated/Reviewed/Updated: Yes - My Orders Last 24 Hours: My Active Orders 10/28/17 12:59 Communication Order [RC] 10/28/17 13:00 Acetaminophen [Tylenol] 650 mg PO Q6H PRN Warfarin Pharmacy to Dose [Pharmacy to Dose - Warfarin] 1 dose .XX ASDIRECTED 10/28/17 13:06 traMADol [Ultram] 50 mg PO Q6H PRN 10/28/17 13:09 Patient Status [ADT] Routine Oxygen Therapy [RC] PRN Up With Assistance [RC] ASDIRECTED VTE/DVT Education [RC] PER UNIT ROUTINE Vital Signs [RC] Q4H Sodium Chloride 0.9% [Saline Flush] 10 ml FLUSH ASDIRECTED PRN Zolpidem [Ambien] 5 mg PO BEDTIME PRN Peripheral IV Insertion Adult [OM.PC] Routine Saline Lock Insert [OM.PC] Routine Resuscitation Status Routine 10/28/17 13:24 Peripheral IV Care [RC] 08,20 10/28/17 14:00 Heparin Sodium/D5W [Heparin 25,000 Units in D5W 500 ML] 25,000 units in 500 ml IV TITRATE 10/28/17 15:00 Isosorbide Mononitrate [Imdur] 30 mg PO 0800,1500 10/28/17 15:45 Bumetanide [Bumex] 1 mg PO DAILY@1200 10/28/17 18:00 Carvedilol [Coreg] 50 mg PO BIDMEALS 10/28/17 21:00 Cephalexin [Keflex] 500 mg PO TID LORazepam [Ativan] 2 mg PO BEDTIME Pantoprazole [ProTONIX] 40 mg PO BEDTIME Simvastatin [Zocor] 10 mg PO BEDTIME hydrALAZINE [Apresoline] 50 mg PO BID 10/28/17 Dinner Regular Diet [DIET] 10/29/17 08:00 Bumetanide [Bumex] 2 mg PO DAILY@0800 Ferrous Sulfate 325 mg PO DAILY@0800 10/29/17 09:00 Allopurinol [Zyloprim] 100 mg PO DAILY Calcitriol [Rocaltrol] 0.25 mcg PO DAILY@1200 Multivitamins,Therapeutic [Thera] 1 each PO DAILY amLODIPine [Norvasc] 2.5 mg PO DAILY 10/29/17 10:16 Chest wo Cont [CT] Routine 10/29/17 14:00 Warfarin [Coumadin] 1 mg PO ONETIME ONE 10/29/17 19:00 PTT,PARTIAL THROMBOPLSTIN TIME [COAG] Q12H 10/30/17 05:11 INR,PT,PROTHROMBIN TIME [COAG] AM 10/30/17 07:00 PTT,PARTIAL THROMBOPLSTIN TIME [COAG] Q12H 10/30/17 19:00 PTT,PARTIAL THROMBOPLSTIN TIME [COAG] Q12H 10/31/17 05:11 INR,PT,PROTHROMBIN TIME [COAG] AM 10/31/17 07:00 PTT,PARTIAL THROMBOPLSTIN TIME [COAG] Q12H 11/01/17 05:11 INR,PT,PROTHROMBIN TIME [COAG] AM 11/02/17 05:11 INR,PT,PROTHROMBIN TIME [COAG] AM 11/03/17 05:11 INR,PT,PROTHROMBIN TIME [COAG] AM - Plan Plan:: The patient is a 77-year-old gentleman with a history of chronic kidney disease stage V, history of pulmonary embolism and DVT, dyslipidemia and hypertension. The patient presented with left arm swelling and redness. It appears it started around 22 October. Later had a clinic visit and was started on Keflex for a presumed cellulitis. The swelling and redness did not improve and was seen in the clinic on 28 October. The patient had no associated fever nor chills. He has been on Coumadin but earlier the INR was subtherapeutic. He denies any new shortness of breath. #1 left upper extremity deep venous thrombosis involving the subclavian, axillary, brachial veins The patient has been on Coumadin for a history of DVT but INR was subtherapeutic lately. Later the Coumadin dose was not changed but Keflex was started. With this on presentation to patient's INR was therapeutic. Due to the significant deep venous thrombosis I have started him on heparin weight-based nomogram. And we will continue this to overlap for another day even though the INR is therapeutic. Monitor PTT and adjust drip rate. We'll also increase Coumadin and he stops the antibiotic and target INR to be between 2.5 and 3.2. We have also reviewed with the patient and other possibility treatments. It is debatable if this thrombosis constitutes Coumadin failure or just the relates to subtherapeutic dosing. Unfortunately with significant renal failure the anticoagulation options are limited. Xarelto is not recommended, there is controversy around apixaban use in Renal failure After discussion with the patient and the decision was to continue on Coumadin with Higher therapeutic target range. I will obtain a CT of the chest to evaluate for a possible mass causing constriction on large blood vessels. We will avoid use of IV contrast due to renal failure. #2 the redness is likely secondary to venous dialysis but there is possible bacterial superinfection. For now I will continue Keflex #3 chronic kidney disease stage IV to V Continue Bumex #4 hypertension Treat with Imdur, Coreg, Bumex, Norvasc, hydralazine #5 coronary artery disease Treat with Imdur, Coreg
[2017-10-29] MEDS ORDERED: Loperamide 2 MG Cap PO PRN (13:37)
[2017-10-29] MEDS: Simvastatin 10 MG Tab PO SCH (20:37)
[2017-10-29] MEDS: Pantoprazole 40 MG Tab.CR PO SCH (20:37)
[2017-10-29] MEDS: LORazepam 1 MG Tab PO SCH (20:38)
[2017-10-29] MEDS ORDERED: LORazepam 2 MG/ML Syringe IVPUSH ONE (23:10)
[2017-10-30] MEDS: Heparin Sodium/D5W 25,000 UNITS/500 ML BAG IV SCH ×2 (05:06→22:59)
[2017-10-30] MEDS: Isosorbide Mononitrate 30 MG Tab.ER PO SCH ×2 (07:51→15:10)
[2017-10-30] MEDS: Carvedilol 25 MG Tab PO SCH ×2 (07:52→17:56)
[2017-10-30] MEDS: Ferrous Sulfate 325 MG Tab PO SCH (07:52)
[2017-10-30] MEDS: Bumetanide 1 MG Tab PO SCH ×2 (07:53→12:11)
[2017-10-30] MEDS: Cephalexin 500 MG Cap PO SCH ×3 (09:30→20:27)
[2017-10-30] MEDS: hydrALAZINE 25 MG Tab PO SCH ×2 (09:31→20:27)
[2017-10-30] MEDS: Multivitamins,Therapeutic Tab PO SCH (09:31)
[2017-10-30] MEDS: amLODIPine 5 MG Tab PO SCH (09:32)
[2017-10-30] MEDS: Allopurinol 100 MG Tab PO SCH (09:32)
[2017-10-30] MEDS ORDERED: diphenhydrAMINE 50 MG Cap PO PRN (10:10)
[2017-10-30] MEDS ORDERED: Heparin Sodium 5,000 Units/ML Vial IVPUSH SCH (10:15)
--- NOTE | 2017-10-30 10:27 | PCM.PN ---
- General Info Date of Service: 10/30/17 Admission Dx/Problem (Free Text): Admission Diagnosis/Problem Admission Diagnosis/Problem DVT of left sublavian, axillary vein, acute Subjective Update: The left upper extremity swelling is still significantly swollen in the mid and upper arms No associated shortness of breath. No chest pain. No sign of bleeding. Was confused and paranoid overnight. This has improved by this morning Functional Status: Reports: Pain Controlled, Tolerating Diet - Review of Systems General: Denies: Fever Pulmonary: Denies: Shortness of Breath Cardiovascular: Denies: Chest Pain Gastrointestinal: Denies: Abdominal Pain Neurological: Reports: Confusion Psychiatric: Reports: Confusion, Agitation - Patient Data Vitals - Most Recent: Last Vital Signs Temp 37.2 C 10/30/17 07:29 Pulse 80 10/30/17 07:52 Resp 20 10/30/17 07:29 BP 120/67 10/30/17 09:32 Pulse Ox 92 L 10/30/17 07:29 Weight - Most Recent: 97.795 kg I&O - Last 24 Hours: Intake & Output 10/29/17 10/30/17 10/30/17 22:59 06:59 14:59 Intake Total 200 517 400 Balance 200 517 400 Lab Results Last 24 Hours: Laboratory Results - last 24 hr 10/29/17 10/30/17 Range/Units 19:00 07:05 PT 26.5 H (9.0-12.0) SEC INR 2.6 H (0.9-1.2) APTT 70.0 H 49.1 H (22.0-34.0) SEC Med Orders - Current: Current Medications Acetaminophen (Tylenol) 650 mg PO Q6H PRN PRN Reason: pain, fever Allopurinol (Zyloprim) 100 mg PO DAILY [facility] Last Admin: 10/30/17 09:32 Dose: 100 mg Amlodipine Besylate (Norvasc) 2.5 mg PO DAILY [facility] Last Admin: 10/30/17 09:32 Dose: 2.5 mg Bumetanide (Bumex) 2 mg PO DAILY@0800 [facility] Last Admin: 10/30/17 07:53 Dose: 2 mg Bumetanide (Bumex) 1 mg PO DAILY@1200 [facility] Last Admin: 10/29/17 12:04 Dose: 1 mg Calcitriol (Rocaltrol) 0.25 mcg PO DAILY@1200 [facility] Last Admin: 10/29/17 12:04 Dose: 0.25 mcg Carvedilol (Coreg) 50 mg PO BIDMEALS [facility] Last Admin: 10/30/17 07:52 Dose: 50 mg Cephalexin (Keflex) 500 mg PO TID [facility] Last Admin: 10/30/17 09:30 Dose: 500 mg Diphenhydramine HCl (Benadryl) 50 mg PO BEDTIME PRN PRN Reason: for sleep Ferrous Sulfate (Ferrous Sulfate) 325 mg PO DAILY@0800 [facility] Last Admin: 10/30/17 07:52 Dose: 325 mg Heparin Sodium (Porcine) (Heparin Sodium) 0 units IVPUSH .Q1H [facility] PRN Reason: Protocol Hydralazine HCl (Apresoline) 50 mg PO BID [facility] Last Admin: 10/30/17 09:31 Dose: 50 mg Isosorbide Mononitrate (Imdur) 30 mg PO 0800,1500 [facility] Last Admin: 10/30/17 07:51 Dose: 30 mg Loperamide HCl (Imodium) 2 mg PO Q6H PRN PRN Reason: Diarrhea Last Admin: 10/29/17 14:14 Dose: 2 mg Lorazepam (Ativan) 2 mg PO BEDTIME [facility] Last Admin: 10/29/17 20:38 Dose: 2 mg Multivitamins (Thera) 1 each PO DAILY [facility] Last Admin: 10/30/17 09:31 Dose: 1 each Pantoprazole Sodium (Protonix) 40 mg PO BEDTIME [facility] Last Admin: 10/29/17 20:37 Dose: 40 mg Simvastatin (Zocor) 10 mg PO BEDTIME [facility] Last Admin: 10/29/17 20:37 Dose: 10 mg Sodium Chloride (Saline Flush) 10 ml FLUSH ASDIRECTED PRN PRN Reason: Keep Vein Open Tramadol HCl (Ultram) 50 mg PO Q6H PRN PRN Reason: severe pain Warfarin Sodium (Pharmacy To Dose - Warfarin) 1 dose .XX ASDIRECTED [facility] Warfarin Sodium (Coumadin) 1 mg PO ONETIME ONE Stop: 10/30/17 14:01 Discontinued Medications Bumetanide (Bumex) 1 mg PO DAILY@1400 [facility] Last Admin: 10/28/17 15:50 Dose: Not Given Heparin Sodium (Porcine) (Heparin Sodium) 1,000 units IVPUSH ONETIME ONE Stop: 10/28/17 21:31 Last Admin: 10/28/17 21:28 Dose: 1,000 units Heparin Sodium/Dextrose (Heparin 25,000 Units In D5w 500 Ml) 25,000 units in 500 mls @ 23.471 mls/hr IV TITRATE [facility]; 12 UNITS/KG/HR PRN Reason: Protocol Last Titration: 10/30/17 07:48 Dose: 15 units/kg/hr, 29.339 mls/hr Lorazepam (Ativan) 0.5 mg IVPUSH ONETIME ONE Stop: 10/29/17 23:11 Last Admin: 10/29/17 23:17 Dose: 0.5 mg Warfarin Sodium (Coumadin) 1.25 mg PO ONETIME ONE Stop: 10/28/17 15:01 Last Admin: 10/28/17 15:54 Dose: 1.25 mg Warfarin Sodium (Coumadin) 1 mg PO ONETIME ONE Stop: 10/29/17 14:01 Last Admin: 10/29/17 14:13 Dose: 1 mg Zolpidem Tartrate (Ambien) 5 mg PO BEDTIME PRN PRN Reason: Sleep Last Admin: 10/29/17 22:04 Dose: 5 mg - Exam General: Alert, Oriented Neck: Supple Lungs: Clear to Auscultation, Normal Respiratory Effort Cardiovascular: Regular Rate, Regular Rhythm, Murmurs (Systolic) Extremities: No Pedal Edema, Other (2+ left upper extremity edema) Skin: Warm, Dry Neurological: No New Focal Deficit Psy/Mental Status: Alert, Labile Mood. No: Agitated - Problem List & Annotations (1) Left upper extremity deep vein thrombosis SNOMED Code(s): 583868072 Code(s): I82.622 - ACUTE EMBOLISM AND THROMBOSIS OF DEEP VEINS OF L UP EXTREM Status: Acute Current Visit: Yes (2) CKD (chronic kidney disease) SNOMED Code(s): 340674578 Code(s): N18.9 - CHRONIC KIDNEY DISEASE, UNSPECIFIED Status: Acute Current Visit: No Qualifiers: Chronic kidney disease stage: stage 4 (severe) Qualified Code(s): N18.4 - Chronic kidney disease, stage 4 (severe) - Problem List Review Problem List Initiated/Reviewed/Updated: Yes - My Orders Last 24 Hours: My Active Orders 10/29/17 13:37 Loperamide [Imodium] 2 mg PO Q6H PRN 10/30/17 10:10 diphenhydrAMINE [Benadryl] 50 mg PO BEDTIME PRN 10/30/17 10:15 Heparin Sodium See Protocol IVPUSH .Q1H 10/30/17 14:00 PTT,PARTIAL THROMBOPLSTIN TIME [COAG] Q6H Warfarin [Coumadin] 1 mg PO ONETIME ONE 10/30/17 19:00 PTT,PARTIAL THROMBOPLSTIN TIME [COAG] Q12H 10/30/17 20:00 PTT,PARTIAL THROMBOPLSTIN TIME [COAG] Q6H 10/31/17 02:00 PTT,PARTIAL THROMBOPLSTIN TIME [COAG] Q6H 10/31/17 05:11 INR,PT,PROTHROMBIN TIME [COAG] AM 10/31/17 05:15 BASIC METABOLIC PANEL,BMP [CHEM] AM CBC WITH AUTO DIFF [HEME] AM 10/31/17 07:00 PTT,PARTIAL THROMBOPLSTIN TIME [COAG] Q12H 10/31/17 08:00 PTT,PARTIAL THROMBOPLSTIN TIME [COAG] Q6H 10/31/17 14:00 PTT,PARTIAL THROMBOPLSTIN TIME [COAG] Q6H 10/31/17 20:00 PTT,PARTIAL THROMBOPLSTIN TIME [COAG] Q6H 11/01/17 02:00 PTT,PARTIAL THROMBOPLSTIN TIME [COAG] Q6H 11/01/17 05:11 INR,PT,PROTHROMBIN TIME [COAG] AM 11/01/17 08:00 PTT,PARTIAL THROMBOPLSTIN TIME [COAG] Q6H 11/02/17 05:11 INR,PT,PROTHROMBIN TIME [COAG] AM 11/03/17 05:11 INR,PT,PROTHROMBIN TIME [COAG] AM - Plan Plan:: The patient is a 77-year-old gentleman with a history of chronic kidney disease stage V, history of pulmonary embolism and DVT, dyslipidemia and hypertension. The patient presented with left arm swelling and redness. It appears it started around 22 October. Later had a clinic visit and was started on Keflex for a presumed cellulitis. The swelling and redness did not improve and was seen in the clinic on 28 October. The patient had no associated fever nor chills. He has been on Coumadin but earlier the INR was subtherapeutic. He denies any new shortness of breath. #1 left upper extremity deep venous thrombosis involving the subclavian, axillary, brachial veins The patient has been on Coumadin for a history of DVT but INR was subtherapeutic lately. Later the Coumadin dose was not changed but Keflex was started. After being on Keflex on presentation the patient's INR was therapeutic. Due to the significant deep venous thrombosis I have started him on heparin weight-based nomogram. Discussed with the patient and family of the risks of benefits of anticoagulation. No apparent current bleeding. Family would prefer continue heparin despite the risk of bleeding. we will continue this to overlap for another day even though the INR is therapeutic. Monitor PTT and adjust drip rate. We'll also increase Coumadin when he stops the antibiotic and try to target INR to be between 2.5 and 3.2. We have also reviewed with the patient and other possibility treatments. discussed thrombolysis - they would not want that he has IVC from prior episode of dvt called [facility] to discuss ?filter in SVC I have obtained a CT of the chest to make sure that there is no mass effect on the deep veins.There was a proximal ascending aorta measurement of 5.6 cm that will need outpatient follow-up. #2 the redness is likely secondary to venous dialysis but there is possible bacterial superinfection. For now I will continue Keflex #3 chronic kidney disease stage IV to V Continue Bumex Recheck electrolytes and renal function test in the morning #4 hypertension Treat with Imdur, Coreg, Bumex, Norvasc, hydralazine #5 coronary artery disease Treat with Imdur, Coreg #6 acute encephalopathy With confusion, paranoia, aggressive behavior last night We'll discontinue Jazmyn Use Benadryl as he was using it at home for sleep
[2017-10-30] MEDS: Calcitriol 0.25 MCG Cap PO SCH (12:12)
[2017-10-30] MEDS: Simvastatin 10 MG Tab PO SCH (20:27)
[2017-10-30] MEDS: LORazepam 1 MG Tab PO SCH (20:27)
[2017-10-30] MEDS: Pantoprazole 40 MG Tab.CR PO SCH (20:27)
--- NOTE | 2017-10-31 09:52 | PCM.PN ---
- General Info Date of Service: 10/31/17 Admission Dx/Problem (Free Text): Admission Diagnosis/Problem Admission Diagnosis/Problem DVT of left sublavian, axillary vein, acute Subjective Update: The left upper extremity swelling is still swollen in the mid and upper arms but appears improved No associated shortness of breath. No chest pain. No sign of bleeding. Remained confused but had a better night. - Review of Systems General: Denies: Fever Pulmonary: Denies: Shortness of Breath Cardiovascular: Denies: Chest Pain Gastrointestinal: Reports: No Symptoms Neurological: Reports: Confusion - Patient Data Vitals - Most Recent: Last Vital Signs Temp 37.1 C 10/31/17 07:53 Pulse 78 10/31/17 07:53 Resp 20 10/31/17 07:53 BP 130/51 L 10/31/17 07:53 Pulse Ox 92 L 10/31/17 07:53 Weight - Most Recent: 97.795 kg I&O - Last 24 Hours: Intake & Output 10/30/17 10/31/17 10/31/17 22:59 06:59 14:59 Intake Total 458 250 Balance 458 250 Lab Results Last 24 Hours: Laboratory Results - last 24 hr 10/30/17 10/30/17 10/31/17 Range/Units 14:05 20:15 06:25 WBC (5.0-10.0) 10^3/uL RBC (4.6-6.2) 10^6/uL Hgb (14.0-18.0) g/dL Hct (40.0-54.0) % MCV (80-100) fL MCH (27.0-34.0) pg MCHC (33.0-35.0) g/dL Plt Count (150-450) 10^3/uL Neut % (Auto) (42.2-75.2) % Lymph % (Auto) (20.5-50.1) % Wilkinson % (Auto) (2-8) % Eos % (Auto) (1.0-3.0) % Baso % (Auto) (0.0-1.0) % PT 24.4 H (9.0-12.0) SEC INR 2.4 H (0.9-1.2) APTT 53.4 H 57.1 H (22.0-34.0) SEC Sodium (135-145) mmol/L Potassium (3.6-5.0) mmol/L Chloride (101-111) mmol/L Carbon Dioxide (21.0-31.0) mmol/L Anion Gap BUN (7-18) mg/dL Creatinine (0.6-1.3) mg/dL Est Cr Clr Drug Dosing mL/min Estimated GFR (MDRD) Glucose (74-105) mg/dL Calcium (8.4-10.2) mg/dl 10/31/17 10/31/17 10/31/17 Range/Units 06:25 06:25 06:25 WBC 7.9 (5.0-10.0) 10^3/uL RBC 3.33 L (4.6-6.2) 10^6/uL Hgb 10.3 L (14.0-18.0) g/dL Hct 33.0 L (40.0-54.0) % MCV 99.1 (80-100) fL MCH 30.9 (27.0-34.0) pg MCHC 31.2 L (33.0-35.0) g/dL Plt Count 232 (150-450) 10^3/uL Neut % (Auto) 48.2 (42.2-75.2) % Lymph % (Auto) 32.4 (20.5-50.1) % Wilkinson % (Auto) 14.3 H (2-8) % Eos % (Auto) 4.5 H (1.0-3.0) % Baso % (Auto) 0.6 (0.0-1.0) % PT (9.0-12.0) SEC INR (0.9-1.2) APTT 58.8 H (22.0-34.0) SEC Sodium 139 (135-145) mmol/L Potassium 3.9 (3.6-5.0) mmol/L Chloride 105 (101-111) mmol/L Carbon Dioxide 25.0 (21.0-31.0) mmol/L Anion Gap 12.9 BUN 56 H (7-18) mg/dL Creatinine 3.1 H (0.6-1.3) mg/dL Est Cr Clr Drug Dosing 19.32 mL/min Estimated GFR (MDRD) 20 Glucose 97 (74-105) mg/dL Calcium 9.9 (8.4-10.2) mg/dl Med Orders - Current: Current Medications Acetaminophen (Tylenol) 650 mg PO Q6H PRN PRN Reason: pain, fever Last Admin: 10/30/17 20:34 Dose: 650 mg Allopurinol (Zyloprim) 100 mg PO DAILY [facility] Last Admin: 10/30/17 09:32 Dose: 100 mg Amlodipine Besylate (Norvasc) 2.5 mg PO DAILY [facility] Last Admin: 10/30/17 09:32 Dose: 2.5 mg Bumetanide (Bumex) 2 mg PO DAILY@0800 [facility] Last Admin: 10/30/17 07:53 Dose: 2 mg Bumetanide (Bumex) 1 mg PO DAILY@1200 [facility] Last Admin: 10/30/17 12:11 Dose: 1 mg Calcitriol (Rocaltrol) 0.25 mcg PO DAILY@1200 [facility] Last Admin: 10/30/17 12:12 Dose: 0.25 mcg Carvedilol (Coreg) 50 mg PO BIDMEALS [facility] Last Admin: 10/30/17 17:56 Dose: 50 mg Cephalexin (Keflex) 500 mg PO TID [facility] Last Admin: 10/30/17 20:27 Dose: 500 mg Diphenhydramine HCl (Benadryl) 50 mg PO BEDTIME PRN PRN Reason: for sleep Last Admin: 10/30/17 20:33 Dose: 50 mg Ferrous Sulfate (Ferrous Sulfate) 325 mg PO DAILY@0800 [facility] Last Admin: 10/30/17 07:52 Dose: 325 mg Hydralazine HCl (Apresoline) 50 mg PO BID [facility] Last Admin: 10/30/17 20:27 Dose: 50 mg Isosorbide Mononitrate (Imdur) 30 mg PO 0800,1500 [facility] Last Admin: 10/30/17 15:10 Dose: 30 mg Loperamide HCl (Imodium) 2 mg PO Q6H PRN PRN Reason: Diarrhea Last Admin: 10/29/17 14:14 Dose: 2 mg Lorazepam (Ativan) 2 mg PO BEDTIME [facility] Last Admin: 10/30/17 20:27 Dose: 2 mg Multivitamins (Thera) 1 each PO DAILY [facility] Last Admin: 10/30/17 09:31 Dose: 1 each Pantoprazole Sodium (Protonix) 40 mg PO BEDTIME [facility] Last Admin: 10/30/17 20:27 Dose: 40 mg Simvastatin (Zocor) 10 mg PO BEDTIME [facility] Last Admin: 10/30/17 20:27 Dose: 10 mg Sodium Chloride (Saline Flush) 10 ml FLUSH ASDIRECTED PRN PRN Reason: Keep Vein Open Tramadol HCl (Ultram) 50 mg PO Q6H PRN PRN Reason: severe pain Warfarin Sodium (Pharmacy To Dose - Warfarin) 1 dose .XX ASDIRECTED [facility] Discontinued Medications Bumetanide (Bumex) 1 mg PO DAILY@1400 [facility] Last Admin: 10/28/17 15:50 Dose: Not Given Heparin Sodium (Porcine) (Heparin Sodium) 1,000 units IVPUSH ONETIME ONE Stop: 10/28/17 21:31 Last Admin: 10/28/17 21:28 Dose: 1,000 units Heparin Sodium/Dextrose (Heparin 25,000 Units In D5w 500 Ml) 25,000 units in 500 mls @ 23.471 mls/hr IV TITRATE [facility]; 12 UNITS/KG/HR PRN Reason: Protocol Last Titration: 10/31/17 07:28 Dose: 15 units/kg/hr, 29.339 mls/hr Lorazepam (Ativan) 0.5 mg IVPUSH ONETIME ONE Stop: 10/29/17 23:11 Last Admin: 10/29/17 23:17 Dose: 0.5 mg Warfarin Sodium (Coumadin) 1.25 mg PO ONETIME ONE Stop: 10/28/17 15:01 Last Admin: 10/28/17 15:54 Dose: 1.25 mg Warfarin Sodium (Coumadin) 1 mg PO ONETIME ONE Stop: 10/29/17 14:01 Last Admin: 10/29/17 14:13 Dose: 1 mg Warfarin Sodium (Coumadin) 1 mg PO ONETIME ONE Stop: 10/30/17 14:01 Last Admin: 10/30/17 14:10 Dose: 1 mg Zolpidem Tartrate (Ambien) 5 mg PO BEDTIME PRN PRN Reason: Sleep Last Admin: 10/29/17 22:04 Dose: 5 mg - Exam General: Alert, Oriented (Person but not to situation) Lungs: Clear to Auscultation, Normal Respiratory Effort Cardiovascular: Regular Rate, Regular Rhythm GI/Abdominal Exam: Normal Bowel Sounds, Soft, Non-Tender Extremities: No Pedal Edema, Other (1+ left upper extremity edema) Skin: Other (Left upper extremity fading redness) - Problem List & Annotations (1) Left upper extremity deep vein thrombosis SNOMED Code(s): 730676445 Code(s): I82.622 - ACUTE EMBOLISM AND THROMBOSIS OF DEEP VEINS OF L UP EXTREM Status: Acute Current Visit: Yes (2) CKD (chronic kidney disease) SNOMED Code(s): 438023597 Code(s): N18.9 - CHRONIC KIDNEY DISEASE, UNSPECIFIED Status: Acute Current Visit: No Qualifiers: Chronic kidney disease stage: stage 4 (severe) Qualified Code(s): N18.4 - Chronic kidney disease, stage 4 (severe) - Problem List Review Problem List Initiated/Reviewed/Updated: Yes - My Orders Last 24 Hours: My Active Orders 10/30/17 10:10 diphenhydrAMINE [Benadryl] 50 mg PO BEDTIME PRN 11/01/17 05:15 INR,PT,PROTHROMBIN TIME [COAG] AM - Plan Plan:: The patient is a 77-year-old gentleman with a history of chronic kidney disease stage V, history of pulmonary embolism and DVT, dyslipidemia and hypertension. The patient presented with left arm swelling and redness. It appears it started around 22 October. Later had a clinic visit and was started on Keflex for a presumed cellulitis. The swelling and redness did not improve and was seen in the clinic on 28 October. The patient had no associated fever nor chills. He has been on Coumadin but earlier the INR was subtherapeutic. He denies any new shortness of breath. #1 left upper extremity deep venous thrombosis involving the subclavian, axillary, brachial veins The patient has been on Coumadin for a history of DVT but INR was subtherapeutic lately. Later the Coumadin dose was not changed but Keflex was started. After being on Keflex on presentation the patient's INR was therapeutic. Due to the significant deep venous thrombosis I have started him on heparin weight-based nomogram. No apparent current bleeding. INR has remained therapeutic Will stop heparin drip We'll also increase Coumadin when he stops the antibiotic and try to target INR to be between 2.5 and 3.0. We have also reviewed with the patient and other possibility treatments. discussed thrombolysis - they would not want that he has IVC from prior episode of dvt called GFK to discuss ?filter in SVC with IR I have obtained a CT of the chest to make sure that there is no mass effect on the deep veins.There was a proximal ascending aorta measurement of 5.6 cm that will need outpatient follow-up. #2 the redness is likely secondary to venous dialysis but there is possible bacterial superinfection. For now I will continue Keflex #3 chronic kidney disease stage IV to V Continue Bumex stable #4 hypertension Treat with Imdur, Coreg, Bumex, Norvasc, hydralazine #5 coronary artery disease Treat with Imdur, Coreg #6 acute encephalopathy With confusion, paranoia, aggressive behavior Frequent reorientation Use Benadryl as he was using it at home for sleep
[2017-10-31] MEDS: hydrALAZINE 25 MG Tab PO SCH ×2 (09:54→20:42)
[2017-10-31] MEDS: Bumetanide 1 MG Tab PO SCH ×2 (09:54→12:50)
[2017-10-31] MEDS: Cephalexin 500 MG Cap PO SCH ×3 (09:54→20:41)
[2017-10-31] MEDS: Multivitamins,Therapeutic Tab PO SCH (09:54)
[2017-10-31] MEDS: Ferrous Sulfate 325 MG Tab PO SCH (09:56)
[2017-10-31] MEDS: Carvedilol 25 MG Tab PO SCH ×2 (09:56→17:43)
[2017-10-31] MEDS: amLODIPine 5 MG Tab PO SCH (09:58)
[2017-10-31] MEDS: Allopurinol 100 MG Tab PO SCH (10:00)
[2017-10-31] MEDS: Isosorbide Mononitrate 30 MG Tab.ER PO SCH ×2 (10:03→14:15)
[2017-10-31] MEDS: Calcitriol 0.25 MCG Cap PO SCH (12:49)
[2017-10-31] MEDS ORDERED: Warfarin 2.5 MG Tab PO ONE (14:00)
[2017-10-31] MEDS: LORazepam 1 MG Tab PO SCH (20:40)
[2017-10-31] MEDS: Simvastatin 10 MG Tab PO SCH (20:41)
[2017-10-31] MEDS: Pantoprazole 40 MG Tab.CR PO SCH (20:42)
[2017-11-01 07:57] VITALS: BP 124/65
[2017-11-01] MEDS ORDERED: Warfarin 2 MG Tab PO ONE (09:21)
[2017-11-01] MEDS: Ferrous Sulfate 325 MG Tab PO SCH (09:29)
[2017-11-01] MEDS: hydrALAZINE 25 MG Tab PO SCH (09:30)
--- NOTE | 2017-11-01 09:30 | PCM.DCSUM1 ---
Discharge Summary - Hospital Course Free Text/Narrative:: The patient is a 77-year-old gentleman with a history of chronic kidney disease stage V, history of pulmonary embolism and DVT, dyslipidemia and hypertension. The patient presented with left arm swelling and redness. It appears it started around 22 October. Later had a clinic visit and was started on Keflex for a presumed cellulitis. The swelling and redness did not improve and was seen in the clinic on 28 October. The patient had no associated fever nor chills. He has been on Coumadin but earlier the INR was subtherapeutic at 1.8. He denies any new shortness of breath. #1 left upper extremity deep venous thrombosis involving the subclavian, axillary, brachial veins The patient has been on Coumadin for a history of DVT but INR was subtherapeutic lately. Later the Coumadin dose was not changed but Keflex was started. After being on Keflex on presentation the patient's INR was therapeutic. Due to the significant deep venous thrombosis I have started him on heparin weight-based nomogram. No apparent current bleeding. INR has remained therapeutic stopped heparin We'll also increase Coumadin and try to target INR to be between 2.5 and 3.5. I have obtained a CT of the chest to make sure that there is no mass effect on the deep veins.There was a proximal ascending aorta measurement of 5.6 cm that will need outpatient follow-up. further age appropriate cancer screening will be important, he has h/o weight loss he is not uptodate with colonoscopy but might be difficult to arrange while on coumadin considerr CT Abd #2 the redness is likely secondary to venous dialysis but there was possible bacterial superinfection. treated with Keflex - stop it now #3 chronic kidney disease stage IV to V Continue Bumex stable #4 hypertension Treat with Imdur, Coreg, Bumex, Norvasc, hydralazine #5 coronary artery disease Treat with Imdur, Coreg #6 acute encephalopathy likely due to delirium With confusion, paranoia, aggressive behavior Frequent reorientation Use Benadryl as he was using it at home for sleep improved - Discharge Data Discharge Date: 11/01/17 Discharge Disposition: Home, Self-Care 01 Condition: Good - Discharge Diagnosis/Problem(s) (1) Left upper extremity deep vein thrombosis SNOMED Code(s): 458919945 ICD Code: I82.622 - ACUTE EMBOLISM AND THROMBOSIS OF DEEP VEINS OF L UP EXTREM Status: Acute Current Visit: Yes (2) CKD (chronic kidney disease) SNOMED Code(s): 452392084 ICD Code: N18.9 - CHRONIC KIDNEY DISEASE, UNSPECIFIED Status: Acute Current Visit: No Qualifiers: Chronic kidney disease stage: stage 4 (severe) Qualified Code(s): N18.4 - Chronic kidney disease, stage 4 (severe) - Patient Instructions Diet: Heart Healthy Diet Activity: As Tolerated - Discharge Plan Home Medications: Home Meds Acetaminophen [Tylenol] 650 mg PO DAILY 09/13/14 [History] Allopurinol 100 mg PO DAILY 09/13/14 [History] Bumetanide [Bumex] 1 mg PO .NOON 09/13/14 [History] Calcitriol 2 tab PO DAILY 09/13/14 [History] Carvedilol 50 mg PO BID 09/13/14 [History] Ferrous Sulfate [Iron] 325 mg PO DAILY 09/13/14 [History] Isosorbide Mononitrate 20 mg PO TID 09/13/14 [History] LORazepam [Ativan] 2 mg PO BEDTIME 09/13/14 [History] Multivitamin [Multi-Vitamin Daily] 1 tab PO DAILY 09/13/14 [History] Pantoprazole [ProTONIX Granules] 40 mg PO BEDTIME 09/13/14 [History] Simvastatin 10 mg PO BEDTIME 09/13/14 [History] amLODIPine Besylate [Amlodipine Besylate] 2.5 mg PO DAILY 09/13/14 [History] hydrALAZINE [Apresoline] 50 mg PO BID 09/13/14 [History] Acetaminophen/Diphenhydramine [Tylenol Pm Ex-Strength Caplet] 1 tab PO BEDTIME PRN 11/08/16 [History] Acetaminophen [Tylenol Extra Strength] 2 tab PO DAILY 10/25/17 [History] Bumetanide [Bumex] 2 mg PO .0800 10/28/17 [History] diphenhydrAMINE HCl [Benadryl] 25 mg PO BEDTIME PRN 10/30/17 [History] Warfarin [Coumadin] 1.25 tab PO DAILY #30 11/01/17 [Rx] - Discharge Summary/Plan Comment DC Time >30 min.: No - General Info Date of Service: 11/01/17 Admission Dx/Problem (Free Text: Admission Diagnosis/Problem Admission Diagnosis/Problem DVT of left sublavian, axillary vein, acute Functional Status: Reports: Pain Controlled - Review of Systems General: Denies: Fever, Weakness Cardiovascular: Reports: Edema (left UE edema improving). Denies: Chest Pain Gastrointestinal: Denies: Abdominal Pain Genitourinary: Denies: Dysuria Neurological: Reports: Confusion (mild, improving) - Patient Data Vitals - Most Recent: Last Vital Signs Temp 36.9 C 11/01/17 07:55 Pulse 88 11/01/17 07:55 Resp 18 11/01/17 07:55 BP 124/65 11/01/17 07:55 Pulse Ox 91 L 11/01/17 07:55 Weight - Most Recent: 97.795 kg I&O - Last 24 hours: Intake & Output 10/31/17 11/01/17 11/01/17 22:59 06:59 14:59 Intake Total 550 Balance 550 Lab Results - Last 24 hrs: Laboratory Results - last 24 hr 11/01/17 Range/Units 06:35 PT 20.4 H (9.0-12.0) SEC INR 2.0 H (0.9-1.2) Med Orders - Current: Current Medications Acetaminophen (Tylenol) 650 mg PO Q6H PRN PRN Reason: pain, fever Last Admin: 10/30/17 20:34 Dose: 650 mg Allopurinol (Zyloprim) 100 mg PO DAILY [facility] Last Admin: 10/31/17 10:00 Dose: 100 mg Amlodipine Besylate (Norvasc) 2.5 mg PO DAILY [facility] Last Admin: 10/31/17 09:58 Dose: 2.5 mg Bumetanide (Bumex) 2 mg PO DAILY@0800 [facility] Last Admin: 10/31/17 09:54 Dose: 2 mg Bumetanide (Bumex) 1 mg PO DAILY@1200 [facility] Last Admin: 10/31/17 12:50 Dose: 1 mg Calcitriol (Rocaltrol) 0.25 mcg PO DAILY@1200 [facility] Last Admin: 10/31/17 12:49 Dose: 0.25 mcg Carvedilol (Coreg) 50 mg PO BIDMEALS [facility] Last Admin: 10/31/17 17:43 Dose: 50 mg Cephalexin (Keflex) 500 mg PO TID [facility] Last Admin: 10/31/17 20:41 Dose: 500 mg Diphenhydramine HCl (Benadryl) 50 mg PO BEDTIME PRN PRN Reason: for sleep Last Admin: 10/30/17 20:33 Dose: 50 mg Ferrous Sulfate (Ferrous Sulfate) 325 mg PO DAILY@0800 [facility] Last Admin: 10/31/17 09:56 Dose: 325 mg Hydralazine HCl (Apresoline) 50 mg PO BID [facility] Last Admin: 10/31/17 20:42 Dose: 50 mg Isosorbide Mononitrate (Imdur) 30 mg PO 0800,1500 [facility] Last Admin: 10/31/17 14:15 Dose: 30 mg Loperamide HCl (Imodium) 2 mg PO Q6H PRN PRN Reason: Diarrhea Last Admin: 10/29/17 14:14 Dose: 2 mg Lorazepam (Ativan) 2 mg PO BEDTIME [facility] Last Admin: 10/31/17 20:40 Dose: 2 mg Multivitamins (Thera) 1 each PO DAILY [facility] Last Admin: 10/31/17 09:54 Dose: 1 each Pantoprazole Sodium (Protonix) 40 mg PO BEDTIME [facility] Last Admin: 10/31/17 20:42 Dose: 40 mg Simvastatin (Zocor) 10 mg PO BEDTIME [facility] Last Admin: 10/31/17 20:41 Dose: 10 mg Sodium Chloride (Saline Flush) 10 ml FLUSH ASDIRECTED PRN PRN Reason: Keep Vein Open Tramadol HCl (Ultram) 50 mg PO Q6H PRN PRN Reason: severe pain Warfarin Sodium (Coumadin) 2 mg PO ONETIME ONE Stop: 11/01/17 09:22 Discontinued Medications Bumetanide (Bumex) 1 mg PO DAILY@1400 [facility] Last Admin: 10/28/17 15:50 Dose: Not Given Heparin Sodium (Porcine) (Heparin Sodium) 1,000 units IVPUSH ONETIME ONE Stop: 10/28/17 21:31 Last Admin: 10/28/17 21:28 Dose: 1,000 units Heparin Sodium/Dextrose (Heparin 25,000 Units In D5w 500 Ml) 25,000 units in 500 mls @ 23.471 mls/hr IV TITRATE [facility]; 12 UNITS/KG/HR PRN Reason: Protocol Last Titration: 10/31/17 10:15 Dose: 0 units/kg/hr, 0 mls/hr Lorazepam (Ativan) 0.5 mg IVPUSH ONETIME ONE Stop: 10/29/17 23:11 Last Admin: 10/29/17 23:17 Dose: 0.5 mg Warfarin Sodium (Pharmacy To Dose - Warfarin) 1 dose .XX ASDIRECTED [facility] Warfarin Sodium (Coumadin) 1.25 mg PO ONETIME ONE Stop: 10/28/17 15:01 Last Admin: 10/28/17 15:54 Dose: 1.25 mg Warfarin Sodium (Coumadin) 1 mg PO ONETIME ONE Stop: 10/29/17 14:01 Last Admin: 10/29/17 14:13 Dose: 1 mg Warfarin Sodium (Coumadin) 1 mg PO ONETIME ONE Stop: 10/30/17 14:01 Last Admin: 10/30/17 14:10 Dose: 1 mg Warfarin Sodium (Coumadin) 1.25 mg PO ONETIME ONE Stop: 10/31/17 14:01 Last Admin: 10/31/17 14:08 Dose: 1.25 mg Zolpidem Tartrate (Ambien) 5 mg PO BEDTIME PRN PRN Reason: Sleep Last Admin: 10/29/17 22:04 Dose: 5 mg - Exam General: Reports: Alert, Oriented Neck: Reports: Supple Lungs: Reports: Clear to Auscultation, Normal Respiratory Effort Cardiovascular: Reports: Irregular Rhythm GI/Abdominal Exam: Normal Bowel Sounds, Soft, Non-Tender Extremities: No Pedal Edema *Q Meaningful Use (DIS) - VTE *Q VTE Criteria *Q: - Stroke *Q Stroke Criteria *Q: - AMI *Q AMI Criteria *Q:
[2017-11-01] MEDS: Carvedilol 25 MG Tab PO SCH (09:31)
[2017-11-01] MEDS: Allopurinol 100 MG Tab PO SCH (09:32)
[2017-11-01] MEDS: Multivitamins,Therapeutic Tab PO SCH (09:32)
[2017-11-01] MEDS: Bumetanide 1 MG Tab PO SCH (09:33)
[2017-11-01] MEDS: Cephalexin 500 MG Cap PO SCH (09:33)
[2017-11-01] MEDS: amLODIPine 5 MG Tab PO SCH (09:34)
[2017-11-01] MEDS ORDERED: FLU VAC QS 17-18(4YR UP)CEL/PF 60 MCG/0.5 ML Syringe IM ONE (09:40)
[2017-11-01] MEDS: Isosorbide Mononitrate 30 MG Tab.ER PO SCH (10:33)
== END 2017-11-01 11:48 | disposition home or self-care (01) | DRG 299 ==
LOC: DL.MS 12:42 → UNDOADMIN 12:42 → EEVIPCON 13:09 → DL.MS 13:09
PROVIDERS: ADMIT Internal Medicine; ATTEND Internal Medicine
DX: I82.622 Acute embolism and thrombosis of deep veins of left upper extremity (principal); G93.40 Encephalopathy, unspecified; I13.2 Hypertensive heart and chronic kidney disease with heart failure and with stage 5 chronic kidney disease, or end stage renal disease; N18.5 Chronic kidney disease, stage 5; I50.9 Heart failure, unspecified; E78.5 Hyperlipidemia, unspecified; Z86.718 Personal history of other venous thrombosis and embolism; K21.9 Gastro-esophageal reflux disease without esophagitis; Z86.73 Personal history of transient ischemic attack (TIA), and cerebral infarction without residual deficits; Z79.01 Long term (current) use of anticoagulants; Z79.899 Other long term (current) drug therapy; Z88.1 Allergy status to other antibiotic agents; Z95.1 Presence of aortocoronary bypass graft
CPT/HCPCS: 36415; 71250; 80048; 85025; 85610; 85730; 90674; A9270-GY; J1644; J2060; Q0163

== ENCOUNTER 2017-12-10 09:56 | Emergency (ER) | payer MEDICARE, BC ==
--- NOTE | 2017-12-10 10:23 | EDM.PDOC ---
ED HPI GENERAL MEDICAL PROBLEM - General Chief Complaint: Neuro Symptoms/Deficits Stated Complaint: CONFUSED, FALLING, WETTING PANTS Time Seen by Provider: 12/10/17 10:22 Source of Information: Reports: Patient, Family, Old Records, RN, RN Notes Reviewed History Limitations: Reports: Altered Mental Status - History of Present Illness INITIAL COMMENTS - FREE TEXT/NARRATIVE: Arrives from home by POV with pt's reporting onset of urinary incontinence on 12/04/17, followed by onset of confusion. Pt has had two non-injury falls in the past couple of days as well. states that pt has been confused and thinks that she is their daughter, and keeps asking her where his is. Pt has remained oriented to self and place, but not to time/date. Pt does not realize that he is confused. He aware that he has "wet his pants" a few times. He does not recall falling. Pt states he has no medical complaints or concerns, and isn't sure why he was brought to the hospital. He denies any pain, SOB, or other Sx's. reports pt has had a good appetite, and that he has not been aggressive or inappropriate. She has not seen him to have any signs of weakness , slurred speech, swallowing difficulties. Denies recent headaches, back pain, chest pain, fevers, or chills, N/V/D/C, or hematuria. Onset: Gradual Onset Date: 12/04/17 Duration: Week(s): (1), Constant, Getting Worse Location: Reports: Generalized Severity: Moderate Improves with: Reports: None Worsens with: Reports: None Associated Symptoms: Reports: No Other Symptoms - Related Data Allergies Allergy/AdvReac Type Severity Reaction Status Date / Time amoxicillin Allergy Mild Cannot Verified 12/10/17 10:32 Remember zolpidem [From Ambien] AdvReac Mild Confusion Verified 12/10/17 10:32 Home Meds: Home Meds Acetaminophen [Tylenol] 650 mg PO DAILY 09/13/14 [History] Allopurinol 100 mg PO DAILY 09/13/14 [History] Bumetanide [Bumex] 1 mg PO .NOON 09/13/14 [History] Calcitriol 2 tab PO DAILY 09/13/14 [History] Carvedilol 50 mg PO BID 09/13/14 [History] Ferrous Sulfate [Iron] 325 mg PO DAILY 09/13/14 [History] Isosorbide Mononitrate 20 mg PO TID 09/13/14 [History] LORazepam [Ativan] 2 mg PO BEDTIME 09/13/14 [History] Multivitamin [Multi-Vitamin Daily] 1 tab PO DAILY 09/13/14 [History] Pantoprazole [ProTONIX Granules] 40 mg PO BEDTIME 09/13/14 [History] Simvastatin 10 mg PO BEDTIME 09/13/14 [History] amLODIPine Besylate [Amlodipine Besylate] 2.5 mg PO DAILY 09/13/14 [History] hydrALAZINE [Apresoline] 50 mg PO BID 09/13/14 [History] Acetaminophen/Diphenhydramine [Tylenol Pm Ex-Strength Caplet] 1 tab PO BEDTIME PRN 11/08/16 [History] Acetaminophen [Tylenol Extra Strength] 2 tab PO DAILY 10/25/17 [History] Bumetanide [Bumex] 2 mg PO .0800 10/28/17 [History] diphenhydrAMINE HCl [Benadryl] 25 mg PO BEDTIME PRN 10/30/17 [History] Warfarin [Coumadin] 1.25 tab PO DAILY #30 11/01/17 [Rx] Past Medical History HEENT History: Reports: Impaired Vision, Macular Degeneration Cardiovascular History: Reports: Blood Clots/VTE/DVT, Heart Failure, High Cholesterol, Hypertension, Pacemaker, Other (See Below) Other Cardiovascular History: cardiomyopathy Respiratory History: Reports: PE, Pneumonia, Recurrent, SOB Gastrointestinal History: Reports: GERD Genitourinary History: Reports: BPH, Chronic Renal Insuffiency Other Genitourinary History: CKD stage 5 with GFR less than 15 ml/min, ARF, Musculoskeletal History: Reports: Arthritis, Gout, Osteoarthritis Neurological History: Reports: CVA Other Neuro History: cerebrovascular disease with pontine stroke in 1998 Psychiatric History: Reports: None Endocrine/Metabolic History: Reports: None Hematologic History: Reports: Anemia, Anticoagulation Therapy, Iron Deficiency Other Hematologic History: recurrent DVT and remote history or PE Immunologic History: Reports: None Oncologic (Cancer) History: Reports: None Dermatologic History: Reports: None - Infectious Disease History Infectious Disease History: Reports: MRSA - Past Surgical History HEENT Surgical History: Reports: None Cardiovascular Surgical History: Reports: Pacer GI Surgical History: Reports: Appendectomy, Cholecystectomy, EGD Other GI Surgeries/Procedures: 11/30/[address] Art, esophageal stricture benign Social & Family History - Family History Family Medical History: Noncontributory HEENT: Reports: Cataract Cardiac: Reports: Hypertension Respiratory: Reports: None GI: Reports: None : Reports: None OBGYN: Reports: None Musculoskeletal: Reports: Arthritis Neurological: Reports: None Psychiatric: Reports: Mood Swings Endocrine/Metabolic: Reports: None Hematologic: Reports: B12 Deficiency Immunologic: Reports: None Dermatologic: Reports: None Oncologic: Reports: None - Tobacco Use Smoking Status *Q: Never Smoker Second Hand Smoke Exposure: No - Caffeine Use Caffeine Use: Reports: Coffee Other Caffeine Use: rare - Alcohol Use Days Per Week of Alcohol Use: 0 - Recreational Drug Use Recreational Drug Use: No - Living Situation & Occupation Living situation: Reports: , with Spouse Occupation: Retired ED ROS GENERAL - Review of Systems Review Of Systems: ROS reveals no pertinent complaints other than HPI. ED EXAM, NEURO - Physical Exam Exam: See Below Exam Limited By: Altered Mental Status General Appearance: Alert, No Apparent Distress, Other (chronically ill appearing, non-toxic appearing, cooperative and pleasantly confused.) Eye Exam: Bilateral Eye: EOMI, PERRL Ears: Normal External Exam, Normal Canal, Hearing Grossly Normal, Normal TMs Nose: Normal Inspection, Normal Mucosa, No Blood Throat/Mouth: Normal Inspection, Normal Lips, Normal Teeth, Normal Gums, Normal Oropharynx, Normal Voice, No Airway Compromise Head Exam: Atraumatic, Normocephalic Neck: Normal Inspection, Supple, Non-Tender, Full Range of Motion. No: Lymphadenopathy (L), Lymphadenopathy (R) Respiratory/Chest: No Respiratory Distress, Lungs Clear, Normal Breath Sounds, No Accessory Muscle Use, Chest Non-Tender Cardiovascular: Regular Rate, Rhythm, No JVD, Other (B/L lower ext. 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 No: Guarding, Rigid, Rebound (Male) Exam: Deferred Rectal (Males) Exam: Deferred Neurological: Alert, Normal Mood/Affect, Normal Dorsiflexion, CN II-XII Intact, Normal Plantar Flexion, No Motor/Sensory Deficits, Other (generalized weakness, orient to person and place only, confused). No: Tremor Back Exam: Normal Inspection Extremities: Normal Range of Motion, Non-Tender Psychiatric: Normal Mood Skin Exam: Warm, Dry, Intact, Normal Color, No Rash EKG INTERPRETATION EKG Date: 12/10/17 Time: 10:24 Rhythm: Other (Paced) Rate (Beats/Min): 75 Comparison: NA - No Prior EKG Course - Vital Signs Last Recorded V/S: Last Vital Signs Temp 36.6 C 12/10/17 12:34 Pulse 77 12/10/17 12:34 Resp 16 12/10/17 12:34 BP 131/76 12/10/17 12:34 Pulse Ox 94 L 12/10/17 12:34 - Orders/Labs/Meds Orders: Active Orders 24 hr Category Date Time Status EKG 12 Lead [EKG Documentation Completion] [] STAT Care 12/10/17 10:32 Active Peripheral IV Care [RC] . DIRECTED Care 12/10/17 10:33 Active Head wo Cont [CT] Stat Exams 12/10/17 10:33 Taken DRUG SCREEN URINE BIORAD [URCHEM] Stat Lab 12/10/17 10:30 Ordered UA W/MICROSCOPIC [URIN] Stat Lab 12/10/17 10:30 Ordered Sodium Chloride 0.9% [Saline Flush] Med 12/10/17 10:33 Active 10 ml FLUSH ASDIRECTED PRN Peripheral IV Insertion Adult [OM.PC] Stat Oth 12/10/17 10:32 Ordered Medication Orders Sodium Chloride (Saline Flush) 10 ml FLUSH ASDIRECTED PRN PRN Reason: Keep Vein Open Last Admin: 12/10/17 10:41 Dose: 10 ml Labs: Laboratory Tests 12/10/17 12/10/17 12/10/17 Range/Units 10:14 10:14 10:14 WBC 6.5 (5.0-10.0) 10^3/uL RBC 3.47 L (4.6-6.2) 10^6/uL Hgb 10.7 L (14.0-18.0) g/dL Hct 35.1 L (40.0-54.0) % MCV 101.2 H (80-100) fL MCH 30.8 (27.0-34.0) pg MCHC 30.5 L (33.0-35.0) g/dL Plt Count 175 (150-450) 10^3/uL Neut % (Auto) 46.9 (42.2-75.2) % Lymph % (Auto) 35.4 (20.5-50.1) % [place] % (Auto) 13.2 H (2-8) % Eos % (Auto) 4.0 H (1.0-3.0) % Baso % (Auto) 0.5 (0.0-1.0) % PT 39.9 H D (9.0-12.0) SEC INR 4.0 H (0.9-1.2) Sodium 141 (135-145) mmol/L Potassium 3.9 (3.6-5.0) mmol/L Chloride 108 (101-111) mmol/L Carbon Dioxide 26.0 (21.0-31.0) mmol/L Anion Gap 10.9 BUN 83 H D (7-18) mg/dL Creatinine 3.8 H (0.6-1.3) mg/dL Est Cr Clr Drug Dosing 15.76 mL/min Estimated GFR (MDRD) 15 BUN/Creatinine Ratio 21.84 Glucose 103 (74-105) mg/dL Calcium 10.7 H (8.4-10.2) mg/dl Magnesium 1.8 (1.8-2.5) mg/dL Total Bilirubin 0.6 (0.2-1.0) mg/dL AST 15 (10-42) IU/L ALT 10 (10-60) IU/L Alkaline Phosphatase 35 L (42-121) IU/L B-Natriuretic Peptide 359 H (0-100) pg/ml Total Protein 6.2 L (6.7-8.2) g/dl Albumin 3.5 (3.2-5.5) g/dl Globulin 2.7 Albumin/Globulin Ratio 1.30 Urine Color (YELLOW) Urine Appearance (CLEAR) Urine pH (5.0-9.0) Ur Specific [place] (1.005-1.030) Urine Protein (NEGATIVE) Urine Glucose (UA) (NEGATIVE) Urine Ketones (NEGATIVE) Urine Occult Blood (NEGATIVE) Urine Nitrite (NEGATIVE) Urine Bilirubin (NEGATIVE) Urine Urobilinogen (0.2-1.0) mg/dL Ur Leukocyte Esterase (NEGATIVE) Urine RBC /HPF Urine WBC (0-5/HPF) /HPF Ur Epithelial Cells /HPF Urine Bacteria (0-FEW/HPF) /HPF Urine Mucus /LPF Urine Opiates Screen (NEGATIVE) Ur Oxycodone Screen (NEGATIVE) Urine Methadone Screen (NEGATIVE) Ur Barbiturates Screen (NEGATIVE) U Tricyclic Antidepress (NEGATIVE) Ur Phencyclidine Scrn (NEGATIVE) Ur Amphetamine Screen (NEGATIVE) U Methamphetamines Scrn (NEGATIVE) Urine MDMA Screen (NEGATIVE) U Benzodiazepines Scrn (NEGATIVE) Urine Cocaine Screen (NEGATIVE) U Marijuana (THC) Screen (NEGATIVE) 12/10/17 12/10/17 Range/Units 10:30 10:30 WBC (5.0-10.0) 10^3/uL RBC (4.6-6.2) 10^6/uL Hgb (14.0-18.0) g/dL Hct (40.0-54.0) % MCV (80-100) fL MCH (27.0-34.0) pg MCHC (33.0-35.0) g/dL Plt Count (150-450) 10^3/uL Neut % (Auto) (42.2-75.2) % Lymph % (Auto) (20.5-50.1) % [place] % (Auto) (2-8) % Eos % (Auto) (1.0-3.0) % Baso % (Auto) (0.0-1.0) % PT (9.0-12.0) SEC INR (0.9-1.2) Sodium (135-145) mmol/L Potassium (3.6-5.0) mmol/L Chloride (101-111) mmol/L Carbon Dioxide (21.0-31.0) mmol/L Anion Gap BUN (7-18) mg/dL Creatinine (0.6-1.3) mg/dL Est Cr Clr Drug Dosing mL/min Estimated GFR (MDRD) BUN/Creatinine Ratio Glucose (74-105) mg/dL Calcium (8.4-10.2) mg/dl Magnesium (1.8-2.5) mg/dL Total Bilirubin (0.2-1.0) mg/dL AST (10-42) IU/L ALT (10-60) IU/L Alkaline Phosphatase (42-121) IU/L B-Natriuretic Peptide (0-100) pg/ml Total Protein (6.7-8.2) g/dl Albumin (3.2-5.5) g/dl Globulin Albumin/Globulin Ratio Urine Color Yellow (YELLOW) Urine Appearance Slightly cloudy (CLEAR) Urine pH 5.5 (5.0-9.0) Ur Specific [place] 1.010 (1.005-1.030) Urine Protein Negative (NEGATIVE) Urine Glucose (UA) Negative (NEGATIVE) Urine Ketones Negative (NEGATIVE) Urine Occult Blood Moderate H (NEGATIVE) Urine Nitrite Negative (NEGATIVE) Urine Bilirubin Negative (NEGATIVE) Urine Urobilinogen 0.2 (0.2-1.0) mg/dL Ur Leukocyte Esterase Negative (NEGATIVE) Urine RBC >100 H /HPF Urine WBC 0-5 (0-5/HPF) /HPF Ur Epithelial Cells Rare /HPF Urine Bacteria Rare (0-FEW/HPF) /HPF Urine Mucus Rare /LPF Urine Opiates Screen Negative (NEGATIVE) Ur Oxycodone Screen Negative (NEGATIVE) Urine Methadone Screen Negative (NEGATIVE) Ur Barbiturates Screen Negative (NEGATIVE) U Tricyclic Antidepress Negative (NEGATIVE) Ur Phencyclidine Scrn Negative (NEGATIVE) Ur Amphetamine Screen Negative (NEGATIVE) U Methamphetamines Scrn Negative (NEGATIVE) Urine MDMA Screen Negative (NEGATIVE) U Benzodiazepines Scrn Positive H (NEGATIVE) Urine Cocaine Screen Negative (NEGATIVE) U Marijuana (THC) Screen Negative (NEGATIVE) Meds: Medications Generic Name Dose Route Start Last Admin Trade Name Freq PRN Reason Stop Dose Admin Sodium Chloride 10 ml 12/10/17 10:33 12/10/17 10:41 Saline Flush FLUSH 10 ml ASDIRECTED PRN Administration Keep Vein Open - Radiology Interpretation Free Text/Narrative:: EXAM: CT Head Without Intravenous Contrast CLINICAL HISTORY: 77 years old, male; Signs and symptoms; Altered mental status/memory loss; Confusion or disorientation; Patient HX: Confusion and recent falls. TECHNIQUE: Axial computed tomography images of the head/brain without intravenous contrast. All CT scans at this facility use one or more dose reduction techniques, viz.: automated exposure control; ma/kV adjustment per patient size (including targeted exams where dose is matched to indication; i.e. head); or iterative reconstruction technique. COMPARISON: CT HEAD 2011-10-20 09:30, FINDINGS: There is no mass lesion or mass effect. There is diffuse central and cortical atrophy consistent with age. There is no CT evidence of acute parenchymal ischemia. There is no intra-axial or extra-axial hemorrhage. There is no evidence of acute obstructive sinonasal disease. Mastoid air cells are grossly normal. Visualized osseous structures are normal. Periventricular white matter low attenuation consistent with chronic small vessel disease IMPRESSION: Central and cortical atrophy more prominent than would be consistent for the patient's age . No CT evidence of acute infarction, intracranial hemorrhage or mass. DANIEL CHENG | Final Radiology Report CONFIDENTIALITY STATEMENT This report is intended only for use by the referring physician, and only in accordance with law. If you received this in error, call [phone]. Page 2 of 2 No significant change since prior CT scan dated 10/20/2011 Thank you for allowing us to participate in the care of your patient. Dictated and Authenticated by: Nima Nguyễn MD 12/10/2017 12:15 PM Central Time ([place] & [place]) CT Results Date: 12/10/17 Departure - Departure Time of Disposition: 12:43 Disposition: DC/Tfer to [facility] 02 Condition: Serious Clinical Impression: Altered mental status Qualifiers: Altered mental status type: disorientation Qualified Code(s): R41.0 - Disorientation, unspecified Acute on chronic kidney failure Qualifiers: Acute renal failure type: unspecified Chronic kidney disease stage: unspecified stage Qualified Code(s): N17.9 - Acute kidney failure, unspecified; N18.9 - Chronic kidney disease, unspecified - Discharge Information Forms: ED Department Discharge, Interfacility Transfer EMTALA - My Orders Last 24 Hours: My Active Orders 12/10/17 10:30 DRUG SCREEN URINE BIORAD [URCHEM] Stat UA W/MICROSCOPIC [URIN] Stat 12/10/17 10:32 EKG 12 Lead [EKG Documentation Completion] [RC] STAT Peripheral IV Insertion Adult [OM.PC] Stat 12/10/17 10:33 Peripheral IV Care [RC] . DIRECTED Head wo Cont [CT] Stat Sodium Chloride 0.9% [Saline Flush] 10 ml FLUSH ASDIRECTED PRN - Assessment/Plan Last 24 Hours: My Active Orders 12/10/17 10:30 DRUG SCREEN URINE BIORAD [URCHEM] Stat UA W/MICROSCOPIC [URIN] Stat 12/10/17 10:32 EKG 12 Lead [EKG Documentation Completion] [RC] STAT Peripheral IV Insertion Adult [OM.PC] Stat 12/10/17 10:33 Peripheral IV Care [] . DIRECTED Head wo Cont [CT] Stat Sodium Chloride 0.9% [Saline Flush] 10 ml FLUSH ASDIRECTED PRN
[2017-12-10] MEDS ORDERED: Sodium Chloride 0.9% 10 ML Syringe FLUSH PRN (10:33)
[2017-12-10 12:35] VITALS: BP 131/76
--- NOTE | 2017-12-13 14:10 | EKG ---
12/10/2017 - DANIEL CHENG TIME: 10:24 a.m. After my reading, EKG shows ventricular paced complexes with right bundle branch block. [facility] /[id number]
== END 2017-12-10 13:25 ==
LOC: DL.ED 09:56
DX: R41.0 Disorientation, unspecified (principal); N17.9 Acute kidney failure, unspecified; I13.2 Hypertensive heart and chronic kidney disease with heart failure and with stage 5 chronic kidney disease, or end stage renal disease; I50.9 Heart failure, unspecified; N18.5 Chronic kidney disease, stage 5; E78.00 Pure hypercholesterolemia, unspecified; Z88.1 Allergy status to other antibiotic agents; Z88.8 Allergy status to other drugs, medicaments and biological substances; Z79.899 Other long term (current) drug therapy; Z79.01 Long term (current) use of anticoagulants; Z86.718 Personal history of other venous thrombosis and embolism
CPT/HCPCS: 36415; 70450; 80053; 80305; 81001; 83735; 83880; 85025; 85610; 93005; 99285; J7050; 93010

== ENCOUNTER 2018-12-15 10:20 | Emergency (ER) | payer MEDICARE, BC ==
[2018-12-15 10:29] VITALS: BP 122/55
--- NOTE | 2018-12-15 10:30 | EDM.PDOC ---
ED HPI GENERAL MEDICAL PROBLEM - General Chief Complaint: General Stated Complaint: AMBULANCE Time Seen by Provider: 12/15/18 10:30 Source of Information: Reports: Patient, EMS, Family, Old Records, RN, RN Notes Reviewed History Limitations: Reports: Altered Mental Status - History of Present Illness INITIAL COMMENTS - FREE TEXT/NARRATIVE: Pt arrives from home by ambulance with reporting that pt became confused and weak yesterday after returning home from dialysis. states he has been unable to get out of bed and does not want to eat. She reports that he has had periods of lucid conversation, then returns to a confused state. Family reports he has been confused in the past with UTIs, and once with a CVA. He reportedly fell about 2 weeks ago and c/o neck pain. He was seen in clinic and had a neck x -ray which they say showed arthritis, but no fracture. Pt is unable to provide any history due to confusion. The family denies that the pt has had any fevers, chills, vomiting, diarrhea, cough, edema, or rashes. Onset Date: 12/14/18 Duration: Intermittent, Waxing/Waning Location: Reports: Generalized Severity: Severe Improves with: Reports: None Worsens with: Reports: None Associated Symptoms: Reports: No Other Symptoms - Related Data Allergies Allergy/AdvReac Type Severity Reaction Status Date / Time amoxicillin Allergy Mild Cannot Verified 12/10/17 10:32 Remember zolpidem [From Ambien] AdvReac Mild Confusion Verified 12/10/17 10:32 Home Meds: Home Meds Acetaminophen [Tylenol] 650 mg PO DAILY 09/13/14 [History] Allopurinol 100 mg PO DAILY 09/13/14 [History] Bumetanide [Bumex] 1 mg PO .NOON 09/13/14 [History] Calcitriol 2 tab PO DAILY 09/13/14 [History] Carvedilol 50 mg PO BID 09/13/14 [History] Ferrous Sulfate [Iron] 325 mg PO DAILY 09/13/14 [History] Isosorbide Mononitrate 20 mg PO TID 09/13/14 [History] LORazepam [Ativan] 2 mg PO BEDTIME 09/13/14 [History] Multivitamin [Multi-Vitamin Daily] 1 tab PO DAILY 09/13/14 [History] Pantoprazole [ProTONIX Granules] 40 mg PO BEDTIME 09/13/14 [History] Simvastatin 10 mg PO BEDTIME 09/13/14 [History] amLODIPine Besylate [Amlodipine Besylate] 2.5 mg PO DAILY 09/13/14 [History] hydrALAZINE [Apresoline] 50 mg PO BID 09/13/14 [History] Acetaminophen/Diphenhydramine [Tylenol Pm Ex-Strength Caplet] 1 tab PO BEDTIME PRN 11/08/16 [History] Acetaminophen [Tylenol Extra Strength] 2 tab PO DAILY 10/25/17 [History] Bumetanide [Bumex] 2 mg PO .0800 10/28/17 [History] diphenhydrAMINE HCl [Benadryl] 25 mg PO BEDTIME PRN 10/30/17 [History] Warfarin [Coumadin] 1.25 tab PO DAILY #30 11/01/17 [Rx] Past Medical History HEENT History: Reports: Impaired Vision, Macular Degeneration Cardiovascular History: Reports: Blood Clots/VTE/DVT, Heart Failure, High Cholesterol, Hypertension, Pacemaker, Other (See Below) Other Cardiovascular History: cardiomyopathy Respiratory History: Reports: PE, Pneumonia, Recurrent, SOB Gastrointestinal History: Reports: GERD Genitourinary History: Reports: BPH, Chronic Renal Insuffiency Other Genitourinary History: CKD stage 5 with GFR less than 15 ml/min, ARF, Musculoskeletal History: Reports: Arthritis, Gout, Osteoarthritis Neurological History: Reports: CVA Other Neuro History: cerebrovascular disease with pontine stroke in 1998 Psychiatric History: Reports: None Endocrine/Metabolic History: Reports: None Hematologic History: Reports: Anemia, Anticoagulation Therapy, Iron Deficiency Other Hematologic History: recurrent DVT and remote history or PE Immunologic History: Reports: None Oncologic (Cancer) History: Reports: None Dermatologic History: Reports: None - Infectious Disease History Infectious Disease History: Reports: MRSA - Past Surgical History HEENT Surgical History: Reports: None Cardiovascular Surgical History: Reports: Pacer GI Surgical History: Reports: Appendectomy, Cholecystectomy, EGD Other GI Surgeries/Procedures: 11/30/[address] Art, esophageal stricture benign Social & Family History - Family History Family Medical History: Noncontributory HEENT: Reports: Cataract Cardiac: Reports: Hypertension Respiratory: Reports: None GI: Reports: None : Reports: None OBGYN: Reports: None Musculoskeletal: Reports: Arthritis Neurological: Reports: None Psychiatric: Reports: Mood Swings Endocrine/Metabolic: Reports: None Hematologic: Reports: B12 Deficiency Immunologic: Reports: None Dermatologic: Reports: None Oncologic: Reports: None - Tobacco Use Smoking Status *Q: Never Smoker - Caffeine Use Caffeine Use: Reports: None Other Caffeine Use: rare - Recreational Drug Use Recreational Drug Use: No - Living Situation & Occupation Living situation: Reports: , with Spouse Occupation: Retired ED ROS GENERAL - Review of Systems Review Of Systems: ROS reveals no pertinent complaints other than HPI. ED EXAM, GENERAL - Physical Exam Exam: See Below Exam Limited By: Altered Mental Status General Appearance: Alert, No Apparent Distress, Other (Frail, elderly, and chronically appearing.) Eye Exam: Bilateral Eye: Normal Inspection Nose: Normal Inspection, Normal Mucosa, No Blood Throat/Mouth: Normal Lips, Normal Voice, No Airway Compromise Head: Atraumatic, Normocephalic Neck: Supple, Full Range of Motion Respiratory/Chest: No Respiratory Distress, Lungs Clear, No Accessory Muscle Use , Chest Non-Tender, Decreased Breath Sounds Cardiovascular: Regular Rate, Rhythm, No Edema GI/Abdominal: Normal Bowel Sounds, Soft, Non-Tender, No Distention. No: Guarding, Rigid, Rebound (Male) Exam: Deferred Rectal (Males) Exam: Deferred Back Exam: Normal Inspection Extremities: Normal Inspection, Non-Tender, No Pedal Edema Neurological: Alert, Inattentive, Confused Skin Exam: Warm, Dry, Intact EKG INTERPRETATION EKG Date: 12/15/18 Time: 10:21 Rhythm: Other (PACED) Rate (Beats/Min): 64 Comparison: NA - No Prior EKG Course - Vital Signs Last Recorded V/S: Last Vital Signs Temp 36.4 C 12/15/18 10:28 Pulse 63 12/15/18 10:28 Resp 12 12/15/18 10:28 BP 122/55 L 12/15/18 10:28 Pulse Ox 94 L 12/15/18 10:28 - Orders/Labs/Meds Orders: Active Orders 24 hr Category Date Time Status EKG 12 Lead [EKG Documentation Completion] [RC] STAT Care 12/15/18 10:36 Active Peripheral IV Care [RC] . DIRECTED Care 12/15/18 10:37 Active CULTURE BLOOD [BC] Stat Lab 12/15/18 10:21 Received CULTURE BLOOD [BC] Stat Lab 12/15/18 10:59 Received Sodium Chloride 0.9% [Saline Flush] Med 12/15/18 10:37 Active 10 ml FLUSH ASDIRECTED PRN Blood Culture x2 Reflex Set [OM.PC] Stat Oth 12/15/18 10:37 Ordered Peripheral IV Insertion Adult [OM.PC] Stat Oth 12/15/18 10:36 Ordered Medication Orders Sodium Chloride (Saline Flush) 10 ml FLUSH ASDIRECTED PRN PRN Reason: Keep Vein Open Last Admin: 12/15/18 11:00 Dose: 10 ml Labs: Laboratory Tests 12/15/18 12/15/18 12/15/18 Range/Units 10:21 10:21 10:21 WBC 6.8 (5.0-10.0) 10^3/uL RBC 3.82 L (4.6-6.2) 10^6/uL Hgb 11.7 L (14.0-18.0) g/dL Hct 36.4 L (40.0-54.0) % MCV 95.3 D (80-100) fL MCH 30.6 (27.0-34.0) pg MCHC 32.1 L (33.0-35.0) g/dL Plt Count 264 D (150-450) 10^3/uL Neut % (Auto) 46.7 (42.2-75.2) % Lymph % (Auto) 38.3 (20.5-50.1) % [place] % (Auto) 13.4 H (2-8) % Eos % (Auto) 1.2 (1.0-3.0) % Baso % (Auto) 0.4 (0.0-1.0) % Sodium 137 (135-145) mmol/L Potassium 4.1 (3.6-5.0) mmol/L Chloride 95 L D (101-111) mmol/L Carbon Dioxide 26.0 (21.0-31.0) mmol/L Anion Gap 20.1 BUN 29 H D (7-18) mg/dL Creatinine 5.4 H D (0.6-1.3) mg/dL Est Cr Clr Drug Dosing TNP Estimated GFR (MDRD) 10 BUN/Creatinine Ratio 5.37 Glucose 95 (74-105) mg/dL Lactic Acid 1.2 (0.5-2.2) mmol/L Calcium 8.7 D (8.4-10.2) mg/dl Phosphorus 5.0 H (2.5-4.6) mg/dL Magnesium 1.6 L (1.8-2.5) mg/dL Total Bilirubin 0.8 (0.2-1.0) mg/dL AST 14 (10-42) IU/L ALT 9 L (10-60) IU/L Alkaline Phosphatase 79 (42-121) IU/L Total Protein 6.5 L (6.7-8.2) g/dl Albumin 3.2 (3.2-5.5) g/dl Globulin 3.3 Albumin/Globulin Ratio 0.97 Urine Color (YELLOW) Urine Appearance (CLEAR) Urine pH (5.0-9.0) Ur Specific [place] (1.005-1.030) Urine Protein (NEGATIVE) Urine Glucose (UA) (NEGATIVE) Urine Ketones (NEGATIVE) Urine Occult Blood (NEGATIVE) Urine Nitrite (NEGATIVE) Urine Bilirubin (NEGATIVE) Urine Urobilinogen (0.2-1.0) mg/dL Ur Leukocyte Esterase (NEGATIVE) Urine RBC /HPF Urine WBC (0-5/HPF) /HPF Ur Epithelial Cells /HPF Amorphous Sediment (0/HPF) /HPF Urine Bacteria (0-FEW/HPF) /HPF 12/15/18 Range/Units 12:50 WBC (5.0-10.0) 10^3/uL RBC (4.6-6.2) 10^6/uL Hgb (14.0-18.0) g/dL Hct (40.0-54.0) % MCV (80-100) fL MCH (27.0-34.0) pg MCHC (33.0-35.0) g/dL Plt Count (150-450) 10^3/uL Neut % (Auto) (42.2-75.2) % Lymph % (Auto) (20.5-50.1) % [place] % (Auto) (2-8) % Eos % (Auto) (1.0-3.0) % Baso % (Auto) (0.0-1.0) % Sodium (135-145) mmol/L Potassium (3.6-5.0) mmol/L Chloride (101-111) mmol/L Carbon Dioxide (21.0-31.0) mmol/L Anion Gap BUN (7-18) mg/dL Creatinine (0.6-1.3) mg/dL Est Cr Clr Drug Dosing Estimated GFR (MDRD) BUN/Creatinine Ratio Glucose (74-105) mg/dL Lactic Acid (0.5-2.2) mmol/L Calcium (8.4-10.2) mg/dl Phosphorus (2.5-4.6) mg/dL Magnesium (1.8-2.5) mg/dL Total Bilirubin (0.2-1.0) mg/dL AST (10-42) IU/L ALT (10-60) IU/L Alkaline Phosphatase (42-121) IU/L Total Protein (6.7-8.2) g/dl Albumin (3.2-5.5) g/dl Globulin Albumin/Globulin Ratio Urine Color [place] (YELLOW) Urine Appearance Turbid (CLEAR) Urine pH 6.0 (5.0-9.0) Ur Specific [place] 1.020 (1.005-1.030) Urine Protein >=300 H (NEGATIVE) Urine Glucose (UA) Negative (NEGATIVE) Urine Ketones Trace H (NEGATIVE) Urine Occult Blood Large H (NEGATIVE) Urine Nitrite Negative (NEGATIVE) Urine Bilirubin Moderate H (NEGATIVE) Urine Urobilinogen 0.2 (0.2-1.0) mg/dL Ur Leukocyte Esterase Negative (NEGATIVE) Urine RBC Semi-packed H /HPF Urine WBC 0-5 (0-5/HPF) /HPF Ur Epithelial Cells Rare /HPF Amorphous Sediment Moderate (0/HPF) /HPF Urine Bacteria Few (0-FEW/HPF) /HPF Meds: Medications Generic Name Dose Route Start Last Admin Trade Name Freq PRN Reason Stop Dose Admin Sodium Chloride 10 ml 12/15/18 10:37 12/15/18 11:00 Saline Flush FLUSH 10 ml ASDIRECTED PRN Administration Keep Vein Open Discontinued Medications Generic Name Dose Route Start Last Admin Trade Name Freq PRN Reason Stop Dose Admin Ondansetron HCl 4 mg 12/15/18 11:08 12/15/18 11:12 Zofran IV 12/15/18 11:09 4 mg ONETIME ONE Administration - Radiology Interpretation Free Text/Narrative:: CXR: no acute process per Rad. report. CT Head: chronic multi-infarct disease, no acute hemorrhage or any other acute findings per Rad. report. Departure - Departure Time of Disposition: 13:50 Disposition: DC/Tfer to Acute Hospital 02 Condition: Serious Clinical Impression: ESRD (end stage renal disease) on dialysis Altered mental status Qualifiers: Altered mental status type: disorientation Qualified Code(s): R41.0 - Disorientation, unspecified - Discharge Information *PRESCRIPTION DRUG MONITORING PROGRAM REVIEWED*: No *COPY OF PRESCRIPTION DRUG MONITORING REPORT IN PATIENT BRENDAN: No Referrals: Giovanni Meadows MD [Primary Care Provider] - Forms: ED Department Discharge, Interfacility Transfer EMTALA - My Orders Last 24 Hours: My Active Orders 12/15/18 10:21 CULTURE BLOOD [BC] Stat 12/15/18 10:36 EKG 12 Lead [EKG Documentation Completion] [RC] STAT Peripheral IV Insertion Adult [OM.PC] Stat 12/15/18 10:37 Peripheral IV Care [RC] . DIRECTED Sodium Chloride 0.9% [Saline Flush] 10 ml FLUSH ASDIRECTED PRN Blood Culture x2 Reflex Set [OM.PC] Stat 12/15/18 10:59 CULTURE BLOOD [BC] Stat - Assessment/Plan Last 24 Hours: My Active Orders 12/15/18 10:21 CULTURE BLOOD [BC] Stat 12/15/18 10:36 EKG 12 Lead [EKG Documentation Completion] [RC] STAT Peripheral IV Insertion Adult [OM.PC] Stat 12/15/18 10:37 Peripheral IV Care [RC] . DIRECTED Sodium Chloride 0.9% [Saline Flush] 10 ml FLUSH ASDIRECTED PRN Blood Culture x2 Reflex Set [OM.PC] Stat 12/15/18 10:59 CULTURE BLOOD [BC] Stat
[2018-12-15] MEDS ORDERED: Sodium Chloride 0.9% 10 ML Syringe FLUSH PRN (10:37)
[2018-12-15 10:55] LABS: ANION GAP 20.1; CHLORIDE,CL 95 mmol/L (101-111); SODIUM,NA 137 mmol/L (135-145)
--- NOTE | 2018-12-15 11:02 | CR ---
Clinical history: 78-year-old male altered mental status and "coarsened" lung sounds Interpretation: Cardiac silhouette less prominent and pulmonary vascularity less congested than on comparison 22 February 2013 exam i.e. improved (new pacemaker). Dense calcifications thoracic aorta. No alveolar edema or dependent effusion. No new lung mass hilar lymphadenopathy or focal lobar pneumonia. No atelectasis/collapse. No pneumothorax. CONCLUSION: No acute cardiopulmonary abnormality. (CXR improved with pacemaker since comparison February 2013 exam)
[2018-12-15] MEDS ORDERED: Ondansetron 4 MG/2 ML SDV IV ONE (11:08)
--- NOTE | 2018-12-15 13:17 | CT ---
Clinical history: 78-year-old male dialysis patient with altered mental status (confusion). TECHNIQUE: Volume acquisition of data emergency unenhanced CT scan of the head and brain obtained with the patient was lying supine on the Siemens multi slice scanner [place], [place]. All data archived in the PACS system for storage, reformatting axial/sagittal/coronal planes and study (bone/brain windows). Comparison 10 December 2017. Interpretation: 1. Chronic moderate severe cerebral cortical atrophy bilaterally with underlying mirror-image normal ventricular system. No hydrocephalus. Cerebellar atrophy. No change in the interval since 10 December 2017 exam. 2. Extensive arteriovascular calcifications skull base. Physiologic midline pineal and symmetric choroid plexus calcifications. 3. Isolated large lacunar infarct thalamus on the left present exam 1 year ago. Scattered chronic multi-infarct ischemic changes. 4. No new supratentorial or posterior fossa mass lesion. 5. Uniformly thick bony calvarium without sign of skull fracture, underlying brain contusion or epidural/subdural hematoma. 6. Brainstem unremarkable. 7. Symmetric clear pneumatization of the paranasal and mastoid sinuses. CONCLUSION: Multi infarct (ischemic) disease as noted on 10 December 2017. No new signs of intracranial mass, hydrocephalus or bleed.
== END 2018-12-15 14:30 ==
LOC: DL.ED 10:20
DX: R41.0 Disorientation, unspecified (principal); I13.2 Hypertensive heart and chronic kidney disease with heart failure and with stage 5 chronic kidney disease, or end stage renal disease; I50.9 Heart failure, unspecified; N18.6 End stage renal disease; Z99.2 Dependence on renal dialysis; Z88.8 Allergy status to other drugs, medicaments and biological substances; Z88.1 Allergy status to other antibiotic agents; Z79.899 Other long term (current) drug therapy
CPT/HCPCS: 36415; 70450; 71045; 80053; 81001; 83605; 83735; 84100; 85025; 87040; 93005; 96374; 99285; J2405

== ENCOUNTER 2021-03-06 13:46 | Emergency (ER) | payer MEDICARE, BC ==
[2021-03-06] MEDS ORDERED: Sodium Chloride 0.9% 10 ML Syringe FLUSH PRN (14:04)
--- NOTE | 2021-03-06 14:08 | EDM.PDOC ---
ED HPI GENERAL MEDICAL PROBLEM - General Chief Complaint: Neuro Symptoms/Deficits Stated Complaint: SENT FROM [facility] LOW BLOOD PRESSURE [id number] Time Seen by Provider: 03/06/21 14:06 Source of Information: Reports: Patient - History of Present Illness INITIAL COMMENTS - FREE TEXT/NARRATIVE: Patient is unfortunate 80-year-old male who presents emerged part today with complaint of weakness and fatigue. The patient reports that he has been weak and fatigued for the past 2 weeks and is progressively worsened. The patient is on dialysis from chronic renal failure he receives dialysis on Tuesday and Tuesday. The spouse reports that he is fallen twice at home when he has gotten up off the toilet he fell to his knees this is happened twice the patient denies any pain at this time. Patient was at dialysis today completed his normal course of dialysis was found to be hypotensive and was sent to the emergency department for further evaluation. The patient has had no fever no chills no chest pain no shortness of breath no nausea no vomiting the reports that he has chronic diarrhea and has had poor p.o. intake he is not eating food he does drink some water and this has been progressively worsening over the last 2 weeks - Related Data Allergies Allergy/AdvReac Type Severity Reaction Status Date / Time amoxicillin Allergy Mild Cannot Verified 03/06/21 15:32 Remember zolpidem [From Ambien] AdvReac Mild Confusion Verified 03/06/21 15:32 Home Meds: Home Meds Acetaminophen [Tylenol] 650 mg PO DAILY 09/13/14 [History] Bumetanide [Bumex] 1 mg PO .NOON 09/13/14 [History] Calcitriol 2 tab PO DAILY 09/13/14 [History] Ferrous Sulfate [Iron] 325 mg PO DAILY 09/13/14 [History] Isosorbide Mononitrate 20 mg PO TID 09/13/14 [History] LORazepam [Ativan] 2 mg PO BEDTIME 09/13/14 [History] Multivitamin [Multi-Vitamin Daily] 1 tab PO DAILY 09/13/14 [History] Pantoprazole [ProTONIX Granules] 40 mg PO BEDTIME 09/13/14 [History] Simvastatin 10 mg PO BEDTIME 09/13/14 [History] allopurinoL [Allopurinol] 100 mg PO DAILY 09/13/14 [History] amLODIPine Besylate [Amlodipine Besylate] 2.5 mg PO DAILY 09/13/14 [History] carvediloL [Carvedilol] 50 mg PO BID 09/13/14 [History] hydrALAZINE [Apresoline] 50 mg PO BID 09/13/14 [History] Acetaminophen/Diphenhydramine [Tylenol Pm Ex-Strength Caplet] 1 tab PO BEDTIME PRN 11/08/16 [History] Acetaminophen [Tylenol Extra Strength] 2 tab PO DAILY 10/25/17 [History] Bumetanide [Bumex] 2 mg PO .0800 10/28/17 [History] diphenhydrAMINE HCL [Benadryl] 25 mg PO BEDTIME PRN 10/30/17 [History] Warfarin [Coumadin] 1.25 tab PO DAILY #30 11/01/17 [Rx] Past Medical History HEENT History: Reports: Impaired Vision, Macular Degeneration Cardiovascular History: Reports: Blood Clots/VTE/DVT, Heart Failure, High Cholesterol, Hypertension, Pacemaker, Other (See Below) Other Cardiovascular History: cardiomyopathy Respiratory History: Reports: PE, Pneumonia, Recurrent, SOB Gastrointestinal History: Reports: GERD Genitourinary History: Reports: BPH, Chronic Renal Insuffiency Other Genitourinary History: CKD stage 5 with GFR less than 15 ml/min, ARF, Musculoskeletal History: Reports: Arthritis, Gout, Osteoarthritis Neurological History: Reports: CVA Other Neuro History: cerebrovascular disease with pontine stroke in 1998 Psychiatric History: Reports: None Endocrine/Metabolic History: Reports: None Hematologic History: Reports: Anemia, Anticoagulation Therapy, Iron Deficiency Other Hematologic History: recurrent DVT and remote history or PE Immunologic History: Reports: None Oncologic (Cancer) History: Reports: None Dermatologic History: Reports: None - Infectious Disease History Infectious Disease History: Reports: MRSA - Past Surgical History HEENT Surgical History: Reports: None Cardiovascular Surgical History: Reports: Pacer GI Surgical History: Reports: Appendectomy, Cholecystectomy, EGD Other GI Surgeries/Procedures: 11/30/[address] Art, davidop hageal stricture benign Social & Family History - Family History Family Medical History: No Pertinent Family History HEENT: Reports: Cataract Cardiac: Reports: Hypertension Respiratory: Reports: None GI: Reports: None : Reports: None OBGYN: Reports: None Musculoskeletal: Reports: Arthritis Neurological: Reports: None Psychiatric: Reports: Mood Swings Endocrine/Metabolic: Reports: None Hematologic: Reports: B12 Deficiency Immunologic: Reports: None Dermatologic: Reports: None Oncologic: Reports: None - Caffeine Use Caffeine Use: Reports: None Other Caffeine Use: rare - Living Situation & Occupation Living situation: Reports: , with Spouse Occupation: Retired ED ROS GENERAL - Review of Systems Review Of Systems: Comprehensive ROS is negative, except as noted in HPI. Constitutional: Denies: Fever, Chills Skin: Denies: Cyanosis, Jaundice Neurological: Reports: Weakness. Denies: Confusion, Dizziness ED EXAM, NEURO - Physical Exam Exam: See Below Exam Limited By: No Limitations General Appearance: Alert, Mild Distress, Thin Throat/Mouth: Normal Inspection, Normal Lips, Normal Teeth, Normal Gums, Normal Oropharynx, Normal Voice, No Airway Compromise Head Exam: Atraumatic, Normocephalic Neck: Normal Inspection, Supple, Non-Tender, Full Range of Motion Respiratory/Chest: No Respiratory Distress, Lungs Clear, Normal Breath Sounds, No Accessory Muscle Use, Chest Non-Tender Cardiovascular: Normal Peripheral Pulses, Regular Rate, Rhythm, No Edema, No Ga llop, No JVD, No Murmur, No Rub GI/Abdominal: Normal Bowel Sounds, Soft, Non-Tender, No Organomegaly, No Distention, No Abnormal Bruit, No Mass Rectal (Males) Exam: Normal Exam, Normal Rectal Tone, Prostate Normal Neurological: Alert, Normal Mood/Affect, Oriented x 3 Back Exam: Normal Inspection, Full Range of Motion, NT Extremities: Normal Inspection, Normal Range of Motion, Non-Tender, No Pedal Edema, Normal Capillary Refill Skin Exam: Warm, Dry, No Rash Course - Vital Signs Text/Narrative:: The patient is passed a melanotic stool there is concern for GI bleed due to his Eliquis will transfer patient to [place] Discussed case with Dr Page at [facility] in [place] accepts the patient in transfer at 1619 Last Recorded V/S: Last Vital Signs Temp 98 F 03/06/21 13:50 Pulse 108 H 03/06/21 13:50 Resp 15 03/06/21 13:50 BP 122/77 03/06/21 13:50 Pulse Ox 95 03/06/21 13:50 - Orders/Labs/Meds Orders: Active Orders 24 hr Category Date Time Status EKG Documentation Completion [RC] STAT Care 03/06/21 14:04 Active INR,PT,PROTHROMBIN TIME [COAG] Stat Lab 03/06/21 15:38 Ordered OCCULT BLOOD SCREEN [OP] Stat Lab 03/06/21 15:29 Ordered Pantoprazole [ProTONIX IV] 40 mg Med 03/06/21 16:15 Active Sodium Chloride 0.9% [Normal Saline] 100 ml IV .CONTINUOS Sodium Chloride 0.9% [Normal Saline] 1,000 ml Med 03/06/21 15:28 Active IV .BOLUS Sodium Chloride 0.9% [Saline Flush] Med 03/06/21 14:04 Active 10 ml FLUSH ASDIRECTED PRN Saline Lock Insert [OM.PC] Stat Oth 03/06/21 14:04 Ordered Medication Orders Sodium Chloride (Normal Saline) 1,000 mls @ 999 mls/hr IV .BOLUS ONE Stop: 03/06/21 16:28 Last Admin: 03/06/21 15:44 Dose: 999 mls/hr Documented by: ANNA Pantoprazole Sodium 40 mg/ (Sodium Chloride) 100 mls @ 20 mls/hr IV .CONTINUOS ANUPAMA Sodium Chloride (Sodium Chloride 0.9% 10 Ml Syringe) 10 ml FLUSH ASDIRECTED PRN PRN Reason: Keep Vein Open Last Admin: 03/06/21 15:45 Dose: 10 ml Documented by: ANNA Labs: Laboratory Tests 03/06/21 03/06/21 Range/Units 14:09 14:09 WBC 6.4 (5.0-10.0) 10^3/uL RBC 2.88 L (4.6-6.2) 10^6/uL Hgb 8.9 L D (14.0-18.0) g/dL Hct 27.7 L (40.0-54.0) % MCV 96.2 (80-100) fL MCH 30.9 (27.0-34.0) pg MCHC 32.1 L (33.0-35.0) g/dL Plt Count 295 (150-450) 10^3/uL Neut % (Auto) 66.7 (42.2-75.2) % Lymph % (Auto) 19.8 L (20.5-50.1) % [place] % (Auto) 12.4 H (2-8) % Eos % (Auto) 0.8 L (1.0-3.0) % Baso % (Auto) 0.3 (0.0-1.0) % Sodium 139 (136-145) mmol/L Potassium 3.4 L (3.5-5.1) mmol/L Chloride 102 (98-107) mmol/L Carbon Dioxide 29 (21-32) mmol/L Anion Gap 11.4 (7-13) mEq/L BUN 15 (7-18) mg/dL Creatinine 5.42 H* (0.70-1.30) mg/dL Est Cr Clr Drug Dosing TNP Estimated GFR (MDRD) 10 BUN/Creatinine Ratio 2.8 (No establ ref range) Glucose 99 (70-99) mg/dL Calcium 8.1 L (8.5-10.1) mg/dL Total Bilirubin 0.5 (0.2-1.0) mg/dL AST 14 L (15-37) U/L ALT 11 L (16-63) U/L Alkaline Phosphatase 68 (46-116) U/L Troponin I High Sens 18 (<=76) pg/mL B-Natriuretic Peptide 194 H (0-100) pg/ml Total Protein 5.8 L (6.4-8.2) g/dL Albumin 2.7 L (3.4-5.0) g/dL Globulin 3.1 Albumin/Globulin Ratio 0.87 Meds: Medications Generic Name Dose Route Start Last Admin Trade Name Freq PRN Reason Stop Dose Admin Sodium Chloride 1,000 mls @ 999 mls/hr 03/06/21 15:28 03/06/21 15:44 Normal Saline IV 03/06/21 16:28 999 mls/hr .BOLUS ONE Administration Pantoprazole Sodium 40 mg/ 100 mls @ 20 mls/hr 03/06/21 16:15 Sodium Chloride IV .CONTINUOS ANUPAMA Sodium Chloride 10 ml 03/06/21 14:04 03/06/21 15:45 Sodium Chloride 0.9% 10 Ml Syringe FLUSH 10 ml ASDIRECTED PRN Administration Keep Vein Open Departure - Departure Time of Disposition: 16:20 Disposition: DC/Tfer to Acute Hospital 02 Clinical Impression: ESRD (end stage renal disease) on dialysis GI bleed Qualifiers: GI bleed type/associated pathology: melena Qualified Code(s): K92.1 - Melena - Discharge Information Forms: ED Department Discharge Sepsis Event Note (ED) - Focused Exam Vital Signs: Vital Signs Temp Pulse Resp BP Pulse Ox 03/06/21 13:50 98 F 108 H 15 122/77 95 - My Orders Last 24 Hours: My Active Orders 03/06/21 14:04 EKG Documentation Completion [RC] STAT Sodium Chloride 0.9% [Saline Flush] 10 ml FLUSH ASDIRECTED PRN Saline Lock Insert [OM.PC] Stat 03/06/21 15:28 Sodium Chloride 0.9% [Normal Saline] 1,000 ml IV .BOLUS 03/06/21 15:29 OCCULT BLOOD SCREEN [OP] Stat 03/06/21 15:38 INR,PT,PROTHROMBIN TIME [COAG] Stat 03/06/21 16:15 Pantoprazole [ProTONIX IV] 40 mg Sodium Chloride 0.9% [Normal Saline] 100 ml IV .CONTINUOS - Assessment/Plan Last 24 Hours: My Active Orders 03/06/21 14:04 EKG Documentation Completion [RC] STAT Sodium Chloride 0.9% [Saline Flush] 10 ml FLUSH ASDIRECTED PRN Saline Lock Insert [OM.PC] Stat 03/06/21 15:28 Sodium Chloride 0.9% [Normal Saline] 1,000 ml IV .BOLUS 03/06/21 15:29 OCCULT BLOOD SCREEN [OP] Stat 03/06/21 15:38 INR,PT,PROTHROMBIN TIME [COAG] Stat 03/06/21 16:15 Pantoprazole [ProTONIX IV] 40 mg Sodium Chloride 0.9% [Normal Saline] 100 ml IV .CONTINUOS
[2021-03-06 14:38] LABS: ANION GAP 11.4 mEq/L (7-13); CHLORIDE,CL 102 mmol/L (98-107); SODIUM,NA 139 mmol/L (136-145)
--- NOTE | 2021-03-06 14:59 | CR ---
PROCEDURE INFORMATION: Exam: XR Chest Exam date and time: 03/06/2021 2:24 PM Age: 80 years old Clinical indication: Other: Weakness TECHNIQUE: Imaging protocol: XR of the chest. Views: 1 view. COMPARISON: CR Chest 1V Frontal 12/15/2018 10:44 AM FINDINGS: Lungs: There is small linear left basilar opacity. No focal consolidation. Pleural spaces: Unremarkable. No pleural effusion. No pneumothorax. Heart/Mediastinum: Unremarkable. No cardiomegaly. Bones/joints: Unremarkable. IMPRESSION: Left lower lung scarring versus subsegmental atelectasis.
[2021-03-06] MEDS ORDERED: Sodium Chloride 0.9% 1,000 ML IV ONE (15:28)
[2021-03-06 15:32] VITALS: BP 122/77; PULSE 108
[2021-03-06] MEDS ORDERED: Pantoprazole 40 MG in Sodium Chloride 0.9% 100 ML IV SCH (16:15)
== END 2021-03-06 16:50 ==
LOC: DL.ED 13:46
DX: I13.2 Hypertensive heart and chronic kidney disease with heart failure and with stage 5 chronic kidney disease, or end stage renal disease (principal); N18.6 End stage renal disease; I50.9 Heart failure, unspecified; D63.1 Anemia in chronic kidney disease; K92.1 Melena; E78.00 Pure hypercholesterolemia, unspecified; K21.9 Gastro-esophageal reflux disease without esophagitis; Z99.2 Dependence on renal dialysis; Z86.718 Personal history of other venous thrombosis and embolism; Z86.711 Personal history of pulmonary embolism; Z88.0 Allergy status to penicillin; Z88.8 Allergy status to other drugs, medicaments and biological substances; Z79.01 Long term (current) use of anticoagulants; Z79.899 Other long term (current) drug therapy
CPT/HCPCS: 36415; 71045; 80053; 83880; 84484; 85025; 93005; 96374; 99285; C9113; J7030

== ENCOUNTER 2021-03-15 03:12 | Emergency (ER) | payer MEDICARE, BC ==
[2021-03-15 03:12] VITALS: BP 93/54; PULSE 90
[~2021-03-15 03:12] MED LIST changes: +Acetaminophen 325 MG Tab PO ONE; -Midazolam 1 MG/ML 2 ML SDV ONE; -fentaNYL 100 MCG/2 ML SDV ONE
[2021-03-15] MEDS ORDERED: Levofloxacin/Dextrose 5%-Water 500 MG in Premix Bag 1 BAG IV ONE (03:46)
[2021-03-15 03:56] LABS: ANION GAP 17.1 mEq/L (7-13)
--- NOTE | 2021-03-15 04:13 | CR ---
PROCEDURE INFORMATION: Exam: XR Chest Exam date and time: 03/15/2021 3:21 AM Age: 80 years old Clinical indication: Fever; Prior surgery TECHNIQUE: Imaging protocol: XR of the chest. Views: 1 view. COMPARISON: CR Chest 1V Frontal 03/06/2021 2:24 PM FINDINGS: Tubes, catheters and devices: A pacemaker defibrillator is placed via the left subclavian vein. Lungs: Unremarkable. No consolidation. Pleural spaces: Unremarkable. No pleural effusion. No pneumothorax. Heart/Mediastinum: Unremarkable. No cardiomegaly. Bones/joints: Unremarkable. IMPRESSION: There are no acute chest findings.
--- NOTE | 2021-03-15 04:14 | CR ---
PROCEDURE INFORMATION: Exam: XR Right Knee Exam date and time: 03/15/2021 3:23 AM Age: 80 years old Clinical indication: Other: Pain; Additional info: Fall TECHNIQUE: Imaging protocol: XR Right knee. Views: 1 or 2 views. COMPARISON: No relevant prior studies available. FINDINGS: Bones/joints: A severe loss of joint space seen in the 3 compartments of the right knee compatible with tricompartmental degenerative joint disease. The most severe narrowing is seen in the medial compartment. Calcifications are seen within the menisci compatible with chondrocalcinosis. Tiny anterior joint effusion is present. Soft tissues: Normal. IMPRESSION: 1. There are no acute osseous findings. 2. 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
--- NOTE | 2021-03-15 04:17 | CT ---
PROCEDURE INFORMATION: Exam: CT Head Without Contrast Exam date and time: 03/15/2021 4:02 AM Age: 80 years old Clinical indication: Other: Fall TECHNIQUE: Imaging protocol: Computed tomography of the head without contrast. Radiation optimization: All CT scans at this facility use at least one of these dose optimization techniques: automated exposure control; mA and/or kV adjustment per patient size (includes targeted exams where dose is matched to clinical indication); or iterative reconstruction. COMPARISON: CT Head wo Cont 12/15/2018 12:58 PM FINDINGS: Brain: There is moderate diffuse cerebral atrophy. Patchy areas of hypoattenuation are seen in the deep white matter of the cerebral hemispheres bilaterally compatible with deep white matter microvascular disease. Focal hypoattenuation seen within the left thalamus appearing stable compared with 12/15/2018 compatible with a chronic lacunar infarction. Hypoattenuation seen within the left basal ganglia and right external capsule anteriorly compatible with chronic lacunar infarctions as well. Cerebral ventricles: No ventriculomegaly. Paranasal sinuses: Visualized sinuses are unremarkable. No fluid levels. Mastoid air cells: Visualized mastoid air cells are well aerated. Bones/joints: Unremarkable. No acute fracture. Soft tissues: Unremarkable. IMPRESSION: There are no acute intracranial findings.
--- NOTE | 2021-03-15 05:04 | EDM.PDOC ---
ED HPI GENERAL MEDICAL PROBLEM - General Chief Complaint: Lower Extremity Injury/Pain Time Seen by Provider: 03/15/21 03:15 Source of Information: Reports: Patient History Limitations: Reports: No Limitations - History of Present Illness INITIAL COMMENTS - FREE TEXT/NARRATIVE: ED via [facility] with c/o weakness fell tonight, right knee pain per but patient denied pain. Recent discharge 03/13 from [facility] per low hgb and "stomach bubbles" Per [facility] dx lower GI bleed, rectal adeno carcinoma. received one unit PRBC's during hospitalization. reports patient ambulatory on discharge but by time got home was unable to walk and weak. appetite fair. No fever. Tonight went to sleep in recliner around 10pm and woke found him lying on back by recliner yelling that needed to go to bathroom, reported to her had pain in right knee, unable to get him off floor by herself so called ambulance. Concern that he needs higher care and assessed for group home placement, states she was planning to talk to PCP on Tuesday. Patient DNR DNI. did not desire surgical intervention for rectal mass. Dialysis last run on Tuesday. Due Tuesday. Currently twice weekly. Patient denies c.o pain. - Related Data Allergies Allergy/AdvReac Type Severity Reaction Status Date / Time No Known Allergies Allergy Verified 03/15/21 03:14 Home Meds: Home Meds Acetaminophen [Tylenol] 650 mg PO DAILY 09/13/14 [History] Bumetanide [Bumex] 1 mg PO .NOON 09/13/14 [History] Calcitriol 2 tab PO DAILY 09/13/14 [History] Ferrous Sulfate [Iron] 325 mg PO DAILY 09/13/14 [History] Isosorbide Mononitrate 20 mg PO TID 09/13/14 [History] LORazepam [Ativan] 2 mg PO BEDTIME 09/13/14 [History] Multivitamin [Multi-Vitamin Daily] 1 tab PO DAILY 09/13/14 [History] Pantoprazole [ProTONIX Granules] 40 mg PO BEDTIME 09/13/14 [History] Simvastatin 10 mg PO BEDTIME 09/13/14 [History] allopurinoL [Allopurinol] 100 mg PO DAILY 09/13/14 [History] amLODIPine Besylate [Amlodipine Besylate] 2.5 mg PO DAILY 09/13/14 [History] carvediloL [Carvedilol] 50 mg PO BID 09/13/14 [History] hydrALAZINE [Apresoline] 50 mg PO BID 09/13/14 [History] Acetaminophen/Diphenhydramine [Tylenol Pm Ex-Strength Caplet] 1 tab PO BEDTIME PRN 11/08/16 [History] Acetaminophen [Tylenol Extra Strength] 2 tab PO DAILY 10/25/17 [History] Bumetanide [Bumex] 2 mg PO .0800 10/28/17 [History] diphenhydrAMINE HCL [Benadryl] 25 mg PO BEDTIME PRN 10/30/17 [History] Warfarin [Coumadin] 1.25 tab PO DAILY #30 11/01/17 [Rx] Past Medical History HEENT History: Reports: Impaired Vision, Macular Degeneration Cardiovascular History: Reports: Blood Clots/VTE/DVT, Heart Failure, High Cholesterol, Hypertension, Pacemaker, Other (See Below) Other Cardiovascular History: cardiomyopathy Respiratory History: Reports: PE, Pneumonia, Recurrent, SOB Gastrointestinal History: Reports: GERD Genitourinary History: Reports: BPH, Chronic Renal Insuffiency Other Genitourinary History: CKD stage 5 with GFR less than 15 ml/min, ARF, Musculoskeletal History: Reports: Arthritis, Gout, Osteoarthritis Neurological History: Reports: CVA Other Neuro History: cerebrovascular disease with pontine stroke in 1998 Psychiatric History: Reports: None Endocrine/Metabolic History: Reports: None Hematologic History: Reports: Anemia, Anticoagulation Therapy, Iron Deficiency Other Hematologic History: recurrent DVT and remote history or PE Immunologic History: Reports: None Oncologic (Cancer) History: Reports: None Dermatologic History: Reports: None - Infectious Disease History Infectious Disease History: Reports: MRSA - Past Surgical History HEENT Surgical History: Reports: None Cardiovascular Surgical History: Reports: Pacer GI Surgical History: Reports: Appendectomy, Cholecystectomy, EGD Other GI Surgeries/Procedures: 11/30/[address] Art, esophageal stricture benign Social & Family History - Family History Family Medical History: No Pertinent Family History HEENT: Reports: Cataract Cardiac: Reports: Hypertension Respiratory: Reports: None GI: Reports: None : Reports: None OBGYN: Reports: None Musculoskeletal: Reports: Arthritis Neurological: Reports: None Psychiatric: Reports: Mood Swings Endocrine/Metabolic: Reports: None Hematologic: Reports: B12 Deficiency Immunologic: Reports: None Dermatologic: Reports: None Oncologic: Reports: None - Tobacco Use Tobacco Use Status *Q: Never Tobacco User - Caffeine Use Caffeine Use: Reports: None Other Caffeine Use: rare - Recreational Drug Use Recreational Drug Use: No - Living Situation & Occupation Living situation: Reports: , with Spouse Occupation: Retired Review of Systems - Review of Systems Review Of Systems: See Below Constitutional: Reports: Weakness. Denies: Chills, Fever Eyes: Reports: No Symptoms Ears: Reports: No Symptoms, Previous Injury Mouth/Throat: Reports: No Symptoms. Denies: Previous Injury Respiratory: Denies: Shortness of Breath, Wheezing, Cough Cardiovascular: Reports: No Symptoms, Other (pacer) GI/Abdominal: Reports: Other (black stool yesterday) Genitourinary: Reports: Other (does not produce urine) Musculoskeletal: Reports: No Symptoms Skin: Reports: No Symptoms Neurological: Reports: Other (slow progressive confusion at times) ED EXAM, GENERAL - Physical Exam Exam: See Below Exam Limited By: No Limitations General Appearance: Alert, Cachetic Eye Exam: Bilateral Eye: EOMI Ears: Normal External Exam, Hearing Loss Nose: Normal Inspection Throat/Mouth: No: Normal Voice (soft) Head: Atraumatic, Normocephalic Neck: Normal Inspection Respiratory/Chest: No Respiratory Distress, Lungs Clear, Normal Breath Sounds Cardiovascular: Irregularly Irregular, Other (monitor paced rhythm) GI/Abdominal: Normal Bowel Sounds, Soft Rectal (Males) Exam: Heme + Stool Extremities: Other (stiff) Neurological: Alert, Oriented, Normal Cognition Psychiatric: Flat Affect Skin Exam: Warm, Dry, Wound/Incision (dime size superficial abrasion right knee). No: Ecchymosis Course - Vital Signs Last Recorded V/S: Last Vital Signs Temp 102.0 F H 03/15/21 03:09 Pulse 90 03/15/21 03:09 Resp 16 03/15/21 03:09 BP 93/54 L 03/15/21 03:09 Pulse Ox 91 L 03/15/21 03:09 - Orders/Labs/Meds Orders: Active Orders 24 hr Category Date Time Status CULTURE BLOOD [BC] Stat Lab 03/15/21 03:30 Results CULTURE BLOOD [BC] Stat Lab 03/15/21 03:35 Received Blood Culture x2 Reflex Set [OM.PC] Stat Oth 03/15/21 03:04 Ordered Labs: Laboratory Tests 03/15/21 03/15/21 03/15/21 Range/Units 03:05 03:30 03:30 WBC 9.3 (5.0-10.0) 10^3/uL RBC 3.39 L (4.6-6.2) 10^6/uL Hgb 10.4 L D (14.0-18.0) g/dL Hct 31.8 L (40.0-54.0) % MCV 93.8 (80-100) fL MCH 30.7 (27.0-34.0) pg MCHC 32.7 L (33.0-35.0) g/dL Plt Count 236 (150-450) 10^3/uL Neut % (Auto) 80.3 H (42.2-75.2) % Lymph % (Auto) 9.9 L (20.5-50.1) % Ogle % (Auto) 8.9 H (2-8) % Eos % (Auto) 0.5 L (1.0-3.0) % Baso % (Auto) 0.4 (0.0-1.0) % PT 13.2 H D (9.0-12.0) SEC INR 1.3 H (0.9-1.2) Sodium (136-145) mmol/L Potassium (3.5-5.1) mmol/L Chloride (98-107) mmol/L Carbon Dioxide (21-32) mmol/L Anion Gap (7-13) mEq/L BUN (7-18) mg/dL Creatinine (0.70-1.30) mg/dL Est Cr Clr Drug Dosing mL/min Estimated GFR (MDRD) BUN/Creatinine Ratio (No establ ref range) Glucose (70-99) mg/dL Lactic Acid (0.4-2.0) mmol/L Calcium (8.5-10.1) mg/dL Magnesium (1.8-2.4) mg/dL Total Bilirubin (0.2-1.0) mg/dL AST (15-37) U/L ALT (16-63) U/L Alkaline Phosphatase (46-116) U/L B-Natriuretic Peptide (0-100) pg/ml Total Protein (6.4-8.2) g/dL Albumin (3.4-5.0) g/dL Globulin Albumin/Globulin Ratio Amylase (25-115) U/L Lipase (73-393) U/L SARS-CoV-2 RNA (JOSE E) Negative (NEGATIVE) 03/15/21 03/15/21 Range/Units 03:30 03:30 WBC (5.0-10.0) 10^3/uL RBC (4.6-6.2) 10^6/uL Hgb (14.0-18.0) g/dL Hct (40.0-54.0) % MCV (80-100) fL MCH (27.0-34.0) pg MCHC (33.0-35.0) g/dL Plt Count (150-450) 10^3/uL Neut % (Auto) (42.2-75.2) % Lymph % (Auto) (20.5-50.1) % Ogle % (Auto) (2-8) % Eos % (Auto) (1.0-3.0) % Baso % (Auto) (0.0-1.0) % PT (9.0-12.0) SEC INR (0.9-1.2) Sodium 143 (136-145) mmol/L Potassium 3.1 L (3.5-5.1) mmol/L Chloride 106 (98-107) mmol/L Carbon Dioxide 23 (21-32) mmol/L Anion Gap 17.1 H (7-13) mEq/L BUN 29 H (7-18) mg/dL Creatinine 8.71 H* D (0.70-1.30) mg/dL Est Cr Clr Drug Dosing 6.54 mL/min Estimated GFR (MDRD) 6 BUN/Creatinine Ratio 3.3 (No establ ref range) Glucose 108 H (70-99) mg/dL Lactic Acid 1.1 (0.4-2.0) mmol/L Calcium 8.5 (8.5-10.1) mg/dL Magnesium 1.7 L (1.8-2.4) mg/dL Total Bilirubin 0.6 (0.2-1.0) mg/dL AST 30 (15-37) U/L ALT 25 (16-63) U/L Alkaline Phosphatase 57 (46-116) U/L B-Natriuretic Peptide 330 H (0-100) pg/ml Total Protein 5.3 L (6.4-8.2) g/dL Albumin 2.4 L (3.4-5.0) g/dL Globulin 2.9 Albumin/Globulin Ratio 0.83 Amylase 75 (25-115) U/L Lipase 314 (73-393) U/L SARS-CoV-2 RNA (JOSE E) (NEGATIVE) Meds: Medications Discontinued Medications Generic Name Dose Route Start Last Admin Trade Name Sabra PRN Reason Stop Dose Admin Acetaminophen 650 mg 03/15/21 03:07 03/15/21 03:17 Acetaminophen 325 Mg Tab PO 03/15/21 03:08 650 mg NOW ONE Administration Levofloxacin/Dextrose 500 mg/ 100 mls @ 100 mls/hr 03/15/21 03:46 03/15/21 04:14 Premix IV 03/15/21 04:45 100 mls/hr ONETIME ONE Administration - Re-Assessments/Exams Free Text/Narrative Re-Assessment/Exam: 03/15/21 05:46 Code status discussed with . desire DNR DNI. Continue treatment, No desire for surgical intervention at this time. Desire NH placement. Does not feel able to care at home for him. Departure - Departure Time of Disposition: 05:05 Disposition: DC/Tfer to Acute Hospital 02 Condition: Good, Poor Clinical Impression: Chronic anticoagulation, Abrasion, End stage chronic kidney disease, Dialysis patient, Adenocarcinoma Fall Qualifiers: Encounter type: initial encounter Qualified Code(s): W19.XXXA - Unspecified fall, initial encounter GI bleed Qualifiers: GI bleed type/associated pathology: melena Qualified Code(s): K92.1 - Melena - Discharge Information *PRESCRIPTION DRUG MONITORING PROGRAM REVIEWED*: No *COPY OF PRESCRIPTION DRUG MONITORING REPORT IN PATIENT BRENDAN: No Referrals: Mitch Simpson NP [Primary Care Provider] - Sepsis Event Note (ED) - Evaluation Sepsis Screening Result: No Definite Risk - Focused Exam Vital Signs: Vital Signs Temp Pulse Resp BP Pulse Ox 03/15/21 03:09 102.0 F H 90 16 93/54 L 91 L - My Orders Last 24 Hours: My Active Orders 03/15/21 03:04 Blood Culture x2 Reflex Set [OM.PC] Stat 03/15/21 03:30 CULTURE BLOOD [BC] Stat 03/15/21 03:35 CULTURE BLOOD [BC] Stat - Assessment/Plan Last 24 Hours: My Active Orders 03/15/21 03:04 Blood Culture x2 Reflex Set [OM.PC] Stat 03/15/21 03:30 CULTURE BLOOD [BC] Stat 03/15/21 03:35 CULTURE BLOOD [BC] Stat
== END 2021-03-15 05:14 ==
LOC: DL.ED 03:12
DX: S80.211A Abrasion, right knee, initial encounter (principal); C20 Malignant neoplasm of rectum; K92.1 Melena; I13.0 Hypertensive heart and chronic kidney disease with heart failure and stage 1 through stage 4 chronic kidney disease, or unspecified chronic kidney disease; I50.9 Heart failure, unspecified; N18.6 End stage renal disease; Z99.2 Dependence on renal dialysis; D68.9 Coagulation defect, unspecified; Z20.822 Contact with and (suspected) exposure to COVID-19; Z79.01 Long term (current) use of anticoagulants; Z79.899 Other long term (current) drug therapy; W18.39XA Other fall on same level, initial encounter; Y92.002 Bathroom of unspecified non-institutional (private) residence as the place of occurrence of the external cause
CPT/HCPCS: 36415; 70450; 71045; 73560; 80053; 82150; 82272; 83605; 83690; 83735; 83880; 85025; 85610; 87040; 93005; 96365; 99285; A9270; J1956; U0002